=== PATIENT | male | born 1965 | race African-American/Black ===

== ENCOUNTER 2016-07-04 16:12 | Emergency (ER) | payer BC, OTHER ==
[2016-07-04] MEDS ORDERED: ACETAMINOPHEN TAB 500 MG TAB PO STA (16:52)
--- NOTE | 2016-07-04 16:55 | ED ---
General Adult HPI - General Chief complaint: Upper Respiratory Infection Stated complaint: SOB Time Seen by Provider: 07/04/16 16:43 Source: patient, RN notes reviewed Mode of arrival: ambulatory Limitations: no limitations - History of Present Illness Initial comments: This is a 51-year-old male who presents with fever that started on Tuesday. Patient also admits to a dry cough and mild congestion. Patient has had an intermittent headache. Patient denies any otalgia or sore throat. Patient admits to some mild shortness of breath. Patient denies any history of asthma or COPD. Patient states he's been taking Tylenol or Motrin for fever symptoms but has not had a measured fever. These are only subjective fevers. Patient states he smokes marijuana once in a while he denies tobacco use or any other drug use. Patient states he drinks alcohol socially. Patient denies any recent chest pain, abdominal pain, nausea/vomiting/diarrhea, back pain, numbness, tingling, hematuria, or visual changes, or any other complaints. - Related Data Home Medications Medication Instructions Recorded Confirmed Cholecalciferol [Vitamin D3] 1,000 unit PO DAILY 07/04/16 07/04/16 Naproxen Sodium [Aleve] 440 mg PO DAILY PRN 07/04/16 07/04/16 Vitamin C Chewable 1 tab PO DAILY 07/04/16 07/04/16 Previous Rx's Medication Instructions Recorded Albuterol Nebulized [Ventolin 2.5 mg INHALATION Q4H 7 Days 07/04/16 Nebulized] predniSONE 20 mg PO DAILY 5 Days 07/04/16 Allergies Allergy/AdvReac Type Severity Reaction Status Date / Time No Known Allergies Allergy Verified 07/04/16 18:07 Review of Systems ROS Statement: Those systems with pertinent positive or pertinent negative responses have been documented in the HPI. ROS Other: All systems not noted in ROS Statement are negative. Past Medical History Past Medical History: Hyperlipidemia History of Any Multi-Drug Resistant Organisms: None Reported Past Surgical History: No Surgical Hx Reported Past Psychological History: No Psychological Hx Reported Smoking Status: Never smoker Past Alcohol Use History: Occasional Past Drug Use History: None Reported General Exam - General Exam Comments Initial Comments: General: The patient is awake and alert, in no distress, and does not appear acutely ill. Eye: Pupils are equal, round and reactive to light, extra-ocular movements are intact. No nystagmus. There is normal conjunctiva bilaterally. No signs of icterus. Ears: TMs pink and pearly with intact cone of light bilaterally. Normal external ear canals Nose: Nasal turbinates pink and moist Mouth and throat: There are moist mucous membranes and no oral lesions. Neck: The neck is supple, there is no tenderness or JVD. Cardiovascular: There is a regular rate and rhythm. No murmur, rub or gallop is appreciated. Respiratory: Lungs are clear to auscultation, respirations are non-labored, breath sounds are equal. No wheezes, stridor, rales, or rhonchi. Musculoskeletal: Normal ROM, no tenderness. Strength 5/5. Sensation intact. Radial pulses equal bilaterally 2+. Neurological: A&O x 3. CN II-XII intact, There are no obvious motor or sensory deficits. Coordination appears grossly intact. Speech is normal. Skin: Skin is warm and dry and no rashes or lesions are noted. Psychiatric: Cooperative, appropriate mood & affect, normal judgment. Limitations: no limitations Course Vital Signs 07/04/16 07/04/16 07/04/16 16:36 17:23 18:37 Temperature 99.7 F H 101.2 F H Pulse Rate 119 H 90 95 Respiratory 24 18 Rate Blood Pressure 112/58 149/73 O2 Sat by Pulse 95 94 L Oximetry 07/04/16 07/04/16 18:43 19:30 Temperature 98.7 F Pulse Rate 95 109 H Respiratory 20 Rate Blood Pressure 134/65 O2 Sat by Pulse 98 Oximetry Medical Decision Making - Medical Decision Making This is a 41-year-old male with a fever and cough since Tuesday. On physical exam patient has a mild fever in the EC and was given Tylenol for this. Lungs are clear to auscultation bilaterally. Influenza was checked and came back positive for influenza A. A chest x-ray was done and reviewed showing: No acute cardiopulmonary process. Reported by Dr. Segal. Patient was feeling slightly dizzy in the EC. Patient is feeling better now and vital signs are stable. Patient was given a DuoNeb treatment in the EC as he states his chest feels tight when he breathes. Patient was feeling much better after DuoNeb treatment. Lungs are clear to auscultation after DuoNeb treatment. Patient was able to stand without feeling dizzy. Patient is agreeable to discharge at this time. I discussed the patient is out of the window for Tamiflu treatment. I discussed that patient be given a prescription for prednisone. I discussed that patient be sent home with a prescription for albuterol treatments and a nebulizer. Discussed symptomatic care. Patient was given a Motrin before discharge. Patient was 98% on room air with respiratory rate of 20 upon discharge. I discussed continuation of Tylenol and Motrin for fever. I discussed return parameters. Discussed that patient should follow up with PCP in one to 2 days or return to the EC for any worsening symptoms or for any further concerns. Patient was receptive to this plan and patient will be discharged home. I discussed this case with attending physician Dr. Augustine who agrees the plan as stated above. - Lab Data Lab Results 07/04/16 07/04/16 Range/Units 16:56 17:18 POC Glucose (mg/dL) 143 H (75-99) mg/dL POC Glu Agency Trainer ID Frances Hwang Influenza Type A RNA Detected H (Not Detectd) Influenza Type B (PCR) Not Detected (Not Detectd) Disposition Clinical Impression: Influenza A Disposition: HOME SELF-CARE Condition: Good Instructions: Influenza Vaccine (ED), Influenza in Children (ED) Additional Instructions: Please use nebulizer treatments as prescribed. Please use prednisone as prescribed. Please continue Tylenol and Motrin or fever. Please use over-the- counter decongestants for symptomatic relief. Please follow-up with her primary care physician tomorrow or return to the EC for any worsening symptoms or for any further concerns. Prescriptions: Albuterol Nebulized [Ventolin Nebulized] 2.5 mg INHALATION Q4H 7 Days predniSONE 20 mg PO DAILY 5 Days Referrals: Etienne Ivan DO [Primary Care Provider] - 1-2 days Time of Disposition: 19:14
[2016-07-04 17:33] LABS: Glucose,Whole Blood 143 mg/dL (75-99)
[2016-07-04] MEDS ORDERED: IPRATROPIUM-ALBUTEROL 3 ML NEB INHALATION STA (17:43)
[2016-07-04] MEDS ORDERED: IBUPROFEN 400 MG TAB PO STA (18:15)
--- NOTE | 2016-07-04 18:28 | XR ---
EXAMINATION TYPE: XR chest 2V DATE OF EXAM: 07/04/2016 6:10 PM COMPARISON: NONE HISTORY: Chest pain per order. Productive cough and shortness of breath patient. TECHNIQUE: Frontal and lateral views of the chest are obtained. FINDINGS: There is no focal air space opacity, pleural effusion, or pneumothorax seen. The cardiac silhouette size is within normal limits. The osseous structures are intact. IMPRESSION: No acute cardiopulmonary process.
[2016-07-04 19:31] VITALS: BP 134/65; PULSE 109; RESP 20; TEMP 98.7
== END 2016-07-04 19:30 | disposition home or self-care (01) ==
LOC: EC 16:12
DX: J10.1 Influenza due to other identified influenza virus with other respiratory manifestations (principal); Z79.899 Other long term (current) drug therapy
CPT/HCPCS: 36415; 71020; 87502; 94640; 99284

== ENCOUNTER 2016-08-24 07:55 | Emergency (ER) | payer OTHER ==
[2016-08-24 08:09] VITALS: BP 187/70; PULSE 77; RESP 18; TEMP 98.7
--- NOTE | 2016-08-24 08:38 | XR ---
EXAMINATION TYPE: XR chest 2V DATE OF EXAM: 08/24/2016 8:28 AM COMPARISON: 07/04/2016 HISTORY: 51-year-old male with cough TECHNIQUE: Frontal and lateral views FINDINGS: The cardiomediastinal silhouette, aorta, and pulmonary vasculature are within normal limits. Some str denise atelectasis at the left base. Otherwise, lungs and pleural spaces are clear. IMPRESSION: No acute cardiopulmonary process.
--- NOTE | 2016-08-24 08:48 | ED ---
ENT HPI - General Chief complaint: ENT Stated complaint: Congestion Time Seen by Provider: 08/24/16 08:08 Source: patient, RN notes reviewed Mode of arrival: ambulatory Limitations: no limitations - History of Present Illness Initial comments: 51-year-old male presents emergency Department chief complaint cough and congestion 2 days. Patient states that he has had some runny nose, postnasal drainage and cough. States his cough is mildly productive. The patient denies fever, chills, headache, dizziness, chest pain, shortness breath. Patient stopped taking any [id number] cough and cold medications. Patient denies any sick contacts. Patient states he has no known lung disease. Patient offers no other complaints. - Related Data Home Medications Medication Instructions Recorded Confirmed Cholecalciferol [Vitamin D3] 1,000 unit PO DAILY 07/04/16 08/24/16 Naproxen Sodium [Aleve] 440 mg PO DAILY PRN 07/04/16 08/24/16 Ascorbic Acid [Vitamin C] 500 mg PO DAILY 08/24/16 08/24/16 Allergies Allergy/AdvReac Type Severity Reaction Status Date / Time No Known Allergies Allergy Verified 08/24/16 08:39 Review of Systems ROS Statement: Those systems with pertinent positive or pertinent negative responses have been documented in the HPI. ROS Other: All systems not noted in ROS Statement are negative. Past Medical History Past Medical History: Hyperlipidemia History of Any Multi-Drug Resistant Organisms: None Reported Past Surgical History: No Surgical Hx Reported Past Psychological History: No Psychological Hx Reported Smoking Status: Never smoker Past Alcohol Use History: Occasional Past Drug Use History: None Reported General Exam Limitations: no limitations General appearance: alert, in no apparent distress Head exam: Present: atraumatic, normocephalic, normal inspection Eye exam: Present: normal appearance, PERRL, EOMI. Absent: scleral icterus, conjunctival injection, periorbital swelling ENT exam: Present: mucous membranes moist, TM's normal bilaterally. Absent: normal oropharynx ( nasal drainage no erythema) Neck exam: Present: normal inspection. Absent: tenderness, meningismus, lymphadenopathy Respiratory exam: Present: normal lung sounds bilaterally. Absent: respiratory distress, wheezes, rales, rhonchi, stridor Cardiovascular Exam: Present: regular rate, normal rhythm, normal heart sounds. Absent: systolic murmur, diastolic murmur, rubs, gallop, clicks Course Vital Signs 08/24/16 08:07 Temperature 98.7 F Pulse Rate 77 Respiratory 18 Rate Blood Pressure 187/70 O2 Sat by Pulse 96 Oximetry Medical Decision Making - Medical Decision Making 51-year-old male sent for cough and congestion symptoms. Patient's chest x-ray shows no acute abnormality. Patient's exam is essentially benign. Patient has a viral upper respiration infection. She will be discharged at this time return parameters were discussed. Disposition Clinical Impression: Viral URI with cough Disposition: HOME SELF-CARE Condition: Stable Instructions: Upper Respiratory Infection (ED) Additional Instructions: Please return to the Emergency Department if symptoms worsen or any other concerns. Time of Disposition: 08:47
== END 2016-08-24 08:56 | disposition home or self-care (01) ==
LOC: EC 07:55
DX: J06.9 Acute upper respiratory infection, unspecified (principal); Z79.899 Other long term (current) drug therapy
CPT/HCPCS: 71020; 99283

== ENCOUNTER 2017-10-18 07:26 | Emergency (ER) | payer OTHER ==
[2017-10-18 07:30] VITALS: BP 129/85; PULSE 67; RESP 18; TEMP 97.8
[2017-10-18] MEDS ORDERED: LIDOCAINE 1% INJ 10MG/ML (20 ML MDV) SQ STA (07:32)
[2017-10-18] MEDS ORDERED: DIPH,PERTUS(ACELL)TETVAC-LF 0.5 ML VIAL IM ONE (07:33)
--- NOTE | 2017-10-18 07:34 | ED ---
General Adult HPI <Raj Mike - Last Filed: 10/18/17 08:56> - General Source: patient, RN notes reviewed Mode of arrival: ambulatory Limitations: no limitations <Tushar Dueñas Last Filed: 10/18/17 09:03> - General Chief complaint: Skin/Abscess/Foreign Body Stated complaint: fish hook rt thumb Time Seen by Provider: 10/18/17 07:31 - History of Present Illness Initial comments: Patient 52-year-old male presented to the emergency room today with a chief complaint of fishhook to the right thumb. Patient states that he was fishing this morning when he accidentally stuck himself. Patient states unsure of his tetanus status. He denies any other complaints or symptoms. Patient denies any recent fever, chills, shortness of breath, chest pain, back pain, abdominal pain , nausea or vomiting, numbness or tingling, headaches or visual changes, or any other complaints. (Tushar Dueñas) - Related Data Home Medications Medication Instructions Recorded Confirmed Cholecalciferol [Vitamin D3] 1,000 unit PO DAILY 07/04/16 10/18/17 Naproxen Sodium [Aleve] 440 mg PO DAILY PRN 07/04/16 10/18/17 Ascorbic Acid [Vitamin C] 500 mg PO DAILY 08/24/16 10/18/17 Allergies Allergy/AdvReac Type Severity Reaction Status Date / Time No Known Allergies Allergy Verified 10/18/17 08:11 Review of Systems ROS Other: All systems not noted in ROS Statement are negative. <Raj Mike - Last Filed: 10/18/17 08:56> ROS Other: All systems not noted in ROS Statement are negative. <Tushar Dueñas - Last Filed: 10/18/17 09:03> ROS Statement: Those systems with pertinent positive or pertinent negative responses have been documented in the HPI. Past Medical History Past Medical History: No Reported History History of Any Multi-Drug Resistant Organisms: None Reported Past Surgical History: No Surgical Hx Reported Past Psychological History: No Psychological Hx Reported Smoking Status: Never smoker Past Alcohol Use History: Occasional Past Drug Use History: None Reported <Tushar Dueñas Last Filed: 10/18/17 09:03> General Exam <Raj Mike Last Filed: 10/18/17 08:56> Limitations: no limitations <Tushar Dueñas - Last Filed: 10/18/17 09:03> - General Exam Comments Initial Comments: General: The patient is awake and alert, in no distress, and does not appear acutely ill. Eye: Pupils are equal, round and reactive to light, extra-ocular movements are intact. No nystagmus. There is normal conjunctiva bilaterally. No signs of icterus. Ears, nose, mouth and throat: There are moist mucous membranes and no oral lesions. Neck: The neck is supple, there is no tenderness or JVD. Musculoskeletal: Normal ROM, no tenderness. Strength 5/5. Sensation intact. Pulses equal bilaterally 2+. Neurological: A&O x 3. CN II-XII intact, There are no obvious motor or sensory deficits. Coordination appears grossly intact. Speech is normal. Skin: Natoma located volar aspect of the right distal thumb. Psychiatric: Cooperative, appropriate mood & affect, normal judgment. (Tushar Dueñas) Vital Signs 10/18/17 07:27 Temperature 97.8 F Pulse Rate 67 Respiratory 18 Rate Blood Pressure 129/85 O2 Sat by Pulse 98 Oximetry Procedures <Raj Mike - Last Filed: 10/18/17 08:56> <Tushar Dueñas - Last Filed: 10/18/17 09:03> - Procedures Initial comment: The patient requested a physician to remove the hook. I did prep the patient's right thumb with Betadine and used 1% Xylocaine plain for local anesthetic. I did cover the 2 exposed barbs of the 3 barbed the fishhook and I was able to remove the hook intact using needle nose pliers. Patient tolerated it well. A dressing will be applied. The fishhook was intact no evidence of any retained foreign body. (Raj Mike) Disposition <Raj Mike - Last Filed: 10/18/17 08:56> Is patient prescribed a controlled substance at d/c from ED?: No Time of Disposition: 09:03 <Tushar Dueñas - Last Filed: 10/18/17 09:03> Clinical Impression: Natoma injury to finger Disposition: HOME SELF-CARE Condition: Good Instructions: Puncture Wound (ED) Additional Instructions: Please watch for signs of infection which may include increased pain, redness, fever or chills. Please return to emergency room for any signs of infection or any other concern. Referrals: SouEtienne washington DO [Primary Care Provider] - 1-2 days
== END 2017-10-18 09:08 | disposition home or self-care (01) ==
LOC: EC 07:26
DX: S60.351A Superficial foreign body of right thumb, initial encounter (principal); Z23 Encounter for immunization; Z79.899 Other long term (current) drug therapy; W22.8XXA Striking against or struck by other objects, initial encounter
CPT/HCPCS: 90715; 99282; 10120; 90471; J2001

== ENCOUNTER 2018-01-25 17:44 | Observation (INO) | payer OTHER ==
[2018-01-25] MEDS ORDERED: METOCLOPRAMIDE 5 MG/ML 2 ML VIAL IVP STA (17:59)
--- NOTE | 2018-01-25 18:03 | ED ---
General Adult HPI - General Chief complaint: Altered Mental Status Stated complaint: Unresponsive Time Seen by Provider: 01/25/18 17:47 Source: patient, EMS, RN notes reviewed Mode of arrival: EMS Limitations: altered mental status - History of Present Illness Initial comments: Patient is a pleasant 52-year-old male presenting to the emergency department following an episode of decreased responsiveness. Patient states he does feel fatigued. Patient is alert however answers in one word sentences. Patient is unclear why he feels this way. Patient states he does remember earlier this morning however does not remember what happened that brought him here. 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 Patient was alert but with decreased responsiveness. Patient originally denies any discomfort. Nursing added that patient distally had admitted to some chest discomfort and now is agreeable to that when he had previously specifically denied it. Patient also admits that they may have been a tiny bit short of breath. Patient was reported as being diaphoretic earlier. Patient denies any histories of seizures. - Related Data Home Medications Medication Instructions Recorded Confirmed Cholecalciferol [Vitamin D3] 1,000 unit PO DAILY 07/04/16 01/25/18 Naproxen Sodium [Aleve] 440 mg PO DAILY PRN 07/04/16 01/25/18 Ascorbic Acid [Vitamin C] 500 mg PO DAILY 08/24/16 01/25/18 Allergies Allergy/AdvReac Type Severity Reaction Status Date / Time strawberry Allergy Anaphylaxis Verified 01/25/18 18:23 Review of Systems ROS Statement: Those systems with pertinent positive or pertinent negative responses have been documented in the HPI. ROS Other: All systems not noted in ROS Statement are negative. Constitutional: Denies: fever Eyes: Denies: eye pain ENT: Denies: ear pain Respiratory: Reports: as per HPI. Denies: cough Cardiovascular: Reports: as per HPI Endocrine: Reports: fatigue Gastrointestinal: Reports: nausea. Denies: abdominal pain, vomiting Genitourinary: Denies: dysuria Musculoskeletal: Denies: back pain Skin: Denies: rash Past Medical History Past Medical History: No Reported History History of Any Multi-Drug Resistant Organisms: None Reported Past Surgical History: No Surgical Hx Reported Past Psychological History: No Psychological Hx Reported Smoking Status: Never smoker Past Alcohol Use History: Occasional Past Drug Use History: None Reported General Exam Limitations: altered mental status General appearance: alert, in no apparent distress, other (Patient is alert but slow to react. Patient answers in one word sentences. Patient follow simple commands.) Head exam: Present: atraumatic, normocephalic Eye exam: Present: normal appearance, PERRL ENT exam: Present: normal oropharynx Neck exam: Present: normal inspection. Absent: tenderness Respiratory exam: Present: normal lung sounds bilaterally Cardiovascular Exam: Present: regular rate, normal rhythm Expanded Peripheral pulses: 2+: Radial (R), Radial (L), Posterior Tibialis (R), Posterior Tibialis (L), Dorsalis Pedis (R), Dorsalis Pedis (L) GI/Abdominal exam: Present: soft. Absent: tenderness Extremities exam: Present: normal inspection. Absent: pedal edema, calf tenderness Neurological exam: Present: alert, oriented X3, CN II-XII intact. Absent: motor sensory deficit Psychiatric exam: Present: flat affect Skin exam: Present: normal color Course Vital Signs 01/25/18 01/25/18 17:52 19:12 Temperature 98.7 F 97.3 F L Pulse Rate 82 65 Respiratory 18 18 Rate Blood Pressure 120/73 121/63 O2 Sat by Pulse 98 100 Oximetry EKG Findings - EKG Comments: EKG Findings:: Normal sinus rhythm 78. OR 186. QRS 148. QT 396. QTc 451. Normal axis. Right bundle branch block. No acute ST change. Medical Decision Making - Medical Decision Making Patient reevaluated and is somewhat improved. Patient remained slightly drowsy however is more alert than he arrived. Family members are present. Family states patient did have an episode of near syncope associated with mild confusion that just lasted for seconds. Patient never lost consciousness completely. When questioned family states patient has been under increased stress recently. Case was discussed with Dr. collazo, who will admit for Dr. Ivan. Consult placed for neurology as well as psychiatry. - Lab Data Result diagrams: 01/25/18 18:10 01/25/18 18:10 Lab Results 01/25/18 01/25/18 01/25/18 Range/Units 18:10 18:10 18:10 WBC 5.9 (3.8-10.6) k/uL RBC 5.05 (4.30-5.90) m/uL Hgb 14.2 (13.0-17.5) gm/dL Hct 43.3 (39.0-53.0) % MCV 85.7 (80.0-100.0) fL MCH 28.1 (25.0-35.0) pg MCHC 32.8 (31.0-37.0) g/dL RDW 13.7 (11.5-15.5) % Plt Count 113 L (150-450) k/uL Neutrophils % 69 % Lymphocytes % 24 % Monocytes % 4 % Eosinophils % 3 % Basophils % 1 % Neutrophils # 4.0 (1.3-7.7) k/uL Lymphocytes # 1.4 (1.0-4.8) k/uL Monocytes # 0.2 (0-1.0) k/uL Eosinophils # 0.2 (0-0.7) k/uL Basophils # 0.0 (0-0.2) k/uL PT (9.0-12.0) sec INR (<1.2) APTT (22.0-30.0) sec D-Dimer (<0.60) mg/L FEU Sodium 141 (137-145) mmol/L Potassium 3.6 (3.5-5.1) mmol/L Chloride 106 (98-107) mmol/L Carbon Dioxide 25 (22-30) mmol/L Anion Gap 10 mmol/L BUN 17 (9-20) mg/dL Creatinine 1.33 H (0.66-1.25) mg/dL Est GFR (CKD-EPI)AfAm 72 (>60 ml/min/1.73 sqM) Est GFR (CKD-EPI)NonAf 62 (>60 ml/min/1.73 sqM) Glucose 124 H (74-99) mg/dL Calcium 9.0 (8.4-10.2) mg/dL Total Bilirubin 0.4 (0.2-1.3) mg/dL AST 53 (17-59) U/L ALT 45 (21-72) U/L Alkaline Phosphatase 44 (38-126) U/L Total Creatine Kinase 924 H (55-170) U/L CK-MB (CK-2) 6.5 H (0.0-2.4) ng/mL CK-MB (CK-2) Rel Index 0.7 Troponin I <0.012 (0.000-0.034) ng/mL Total Protein 7.3 (6.3-8.2) g/dL Albumin 4.2 (3.5-5.0) g/dL Urine Color Urine Appearance (Clear) Urine pH (5.0-8.0) Ur Specific [place] (1.001-1.035) Urine Protein (Negative) Urine Glucose (UA) (Negative) Urine Ketones (Negative) Urine Blood (Negative) Urine Nitrite (Negative) Urine Bilirubin (Negative) Urine Urobilinogen (<2.0) mg/dL Ur Leukocyte Esterase (Negative) Urine Opiates Screen (NotDetected) Ur Oxycodone Screen (NotDetected) Urine Methadone Screen (NotDetected) Ur Propoxyphene Screen (NotDetected) Ur Barbiturates Screen (NotDetected) U Tricyclic Antidepress (NotDetected) Ur Phencyclidine Scrn (NotDetected) Ur Amphetamines Screen (NotDetected) U Methamphetamines Scrn (NotDetected) U Benzodiazepines Scrn (NotDetected) Urine Cocaine Screen (NotDetected) U Marijuana (THC) Screen (NotDetected) Serum Alcohol <10 mg/dL 01/25/18 01/25/18 Range/Units 18:10 18:10 WBC (3.8-10.6) k/uL RBC (4.30-5.90) m/uL Hgb (13.0-17.5) gm/dL Hct (39.0-53.0) % MCV (80.0-100.0) fL MCH (25.0-35.0) pg MCHC (31.0-37.0) g/dL RDW (11.5-15.5) % Plt Count (150-450) k/uL Neutrophils % % Lymphocytes % % Monocytes % % Eosinophils % % Basophils % % Neutrophils # (1.3-7.7) k/uL Lymphocytes # (1.0-4.8) k/uL Monocytes # (0-1.0) k/uL Eosinophils # (0-0.7) k/uL Basophils # (0-0.2) k/uL PT 10.3 (9.0-12.0) sec INR 1.0 (<1.2) APTT 18.6 L (22.0-30.0) sec D-Dimer 0.27 (<0.60) mg/L FEU Sodium (137-145) mmol/L Potassium (3.5-5.1) mmol/L Chloride (98-107) mmol/L Carbon Dioxide (22-30) mmol/L Anion Gap mmol/L BUN (9-20) mg/dL Creatinine (0.66-1.25) mg/dL Est GFR (CKD-EPI)AfAm (>60 ml/min/1.73 sqM) Est GFR (CKD-EPI)NonAf (>60 ml/min/1.73 sqM) Glucose (74-99) mg/dL Calcium (8.4-10.2) mg/dL Total Bilirubin (0.2-1.3) mg/dL AST (17-59) U/L ALT (21-72) U/L Alkaline Phosphatase (38-126) U/L Total Creatine Kinase (55-170) U/L CK-MB (CK-2) (0.0-2.4) ng/mL CK-MB (CK-2) Rel Index Troponin I (0.000-0.034) ng/mL Total Protein (6.3-8.2) g/dL Albumin (3.5-5.0) g/dL Urine Color Yellow Urine Appearance Clear (Clear) Urine pH 7.0 (5.0-8.0) Ur Specific [place] 1.022 (1.001-1.035) Urine Protein Trace H (Negative) Urine Glucose (UA) Negative (Negative) Urine Ketones Negative (Negative) Urine Blood Negative (Negative) Urine Nitrite Negative (Negative) Urine Bilirubin Negative (Negative) Urine Urobilinogen <2.0 (<2.0) mg/dL Ur Leukocyte Esterase Negative (Negative) Urine Opiates Screen Not Detected (NotDetected) Ur Oxycodone Screen Not Detected (NotDetected) Urine Methadone Screen Not Detected (NotDetected) Ur Propoxyphene Screen Not Detected (NotDetected) Ur Barbiturates Screen Not Detected (NotDetected) U Tricyclic Antidepress Not Detected (NotDetected) Ur Phencyclidine Scrn Not Detected (NotDetected) Ur Amphetamines Screen Not Detected (NotDetected) U Methamphetamines Scrn Not Detected (NotDetected) U Benzodiazepines Scrn Not Detected (NotDetected) Urine Cocaine Screen Not Detected (NotDetected) U Marijuana (THC) Screen Detected H (NotDetected) Serum Alcohol mg/dL - Radiology Data Radiology results: report reviewed (Computed tomography scan of the brain shows no acute process.), image reviewed (Chest x-ray shows no acute process) Disposition Clinical Impression: Altered mental status Disposition: ADMITTED IP TO THIS HOSP Is patient prescribed a controlled substance at d/c from ED?: No Referrals: Etienne Ivan DO [Primary Care Provider] - 1-2 days Decision Time: 20:18
[2018-01-25 18:21] LABS: Appearance,Urine Clear (Clear); Basophils % (A) 1 %; Bilirubin,Urine Negative (Negative); Blood,Urine Negative (Negative); Color,Urine Yellow; Eosinophils # (A) 0.2 k/uL (0-0.7); Eosinophils % (A) 3 %; Glucose,Urine (UA) Negative (Negative); HCT 43.3 % (39.0-53.0); HGB 14.2 gm/dL (13.0-17.5); Ketones,Urine Negative (Negative); Leukocyte Esterase,Urine Negative (Negative); Lymphocytes # (A) 1.4 k/uL (1.0-4.8); Lymphocytes % (A) 24 %; MCH 28.1 pg (25.0-35.0); MCHC 32.8 g/dL (31.0-37.0); MCV 85.7 fL (80.0-100.0); Mean Platelet Volume 8.3; Monocytes # (A) 0.2 k/uL (0-1.0); Monocytes % (A) 4 %; Neutrophils % (A) 69 %; Nitrite,Urine Negative (Negative); Platelet Count 113 k/uL (150-450); Protein,Urine Trace (Negative); RBC 5.05 m/uL (4.30-5.90); RDW 13.7 % (11.5-15.5); Specific Gravity,Urine 1.022 (1.001-1.035); Urobilinogen,Urine <2.0 mg/dL (<2.0); WBC 5.9 k/uL (3.8-10.6)
[2018-01-25 18:30] LABS: ALT 45 U/L (21-72); AST 53 U/L (17-59); Albumin 4.2 g/dL (3.5-5.0); Alcohol <10 mg/dL; Alkaline Phosphatase 44 U/L (38-126); Anion Gap 10 mmol/L; Blood Urea Nitrogen 17 mg/dL (9-20); Carbon Dioxide 25 mmol/L (22-30); Chloride 106 mmol/L (98-107); Glucose 124 mg/dL (74-99); Potassium 3.6 mmol/L (3.5-5.1); Sodium 141 mmol/L (137-145); Total Bilirubin 0.4 mg/dL (0.2-1.3); Total Protein 7.3 g/dL (6.3-8.2)
[2018-01-25 18:32] LABS: Amphetamine Screen,Urine Not Detected (NotDetected); Barbiturate Screen,Urine Not Detected (NotDetected); Benzodiazepines Screen,Urine Not Detected (NotDetected); Cocaine Screen,Urine Not Detected (NotDetected); Methadone Screen, Urine Not Detected (NotDetected); Opiate Screen,Urine Not Detected (NotDetected); Oxycodone Screen, Urine Not Detected (NotDetected); Phencyclidine Screen,Urine Not Detected (NotDetected); Tricyclic Antidepressant,Urine Not Detected (NotDetected); Urn Cannabinoid Scrn Detected (NotDetected)
[2018-01-25 18:35] LABS: Creatine Kinase 924 U/L (55-170)
--- NOTE | 2018-01-25 18:42 | CT ---
EXAMINATION TYPE: CT brain wo con DATE OF EXAM: 01/25/2018 COMPARISON: None HISTORY: Altered mental status. CT DLP: 1183 mGycm Automated exposure control for dose reduction was used. FINDINGS: Ventricles have normal size. There is no mass effect nor midline shift. There is no sign of intracran ial hemorrhage. The calvarium appears intact. IMPRESSION: NEGATIVE CT SCAN OF THE BRAIN.
[2018-01-25 18:45] LABS: D-Dimer 0.27 mg/L FEU (<0.60); Prothrombin Time 10.3 sec (9.0-12.0)
[2018-01-25 18:48] LABS: Creatine Kinase MB 6.5 ng/mL (0.0-2.4); Troponin I <0.012 ng/mL (0.000-0.034)
[2018-01-25 18:50] LABS: Partial Thromboplastin Time 18.6 sec (22.0-30.0)
--- NOTE | 2018-01-25 19:13 | XR ---
EXAMINATION TYPE: XR chest 2V DATE OF EXAM: 01/25/2018 COMPARISON: 08/24/2016 HISTORY: Altered mental status. Chest pain TECHNIQUE: Frontal and lateral views of the chest are obtained. FINDINGS: There is no heart failure nor confluent pneumonic infiltrate. Costophrenic angles are carroll r. There are chest leads. Bony thorax is intact. IMPRESSION: Normal chest. No change.
[2018-01-25] MEDS ORDERED: ONDANSETRON 4 MG/2 ML VIAL IVP PRN (20:22)
[2018-01-25] MEDS ORDERED: NALOXONE 0.4 MG/ML 1 ML VIAL IV PRN (20:22)
[2018-01-25] MEDS: PANTOPRAZOLE 40 MG/10 ML VIAL IV SCH (21:15)
[2018-01-25] MEDS: SODIUM CHLORIDE 0.9% 1,000 ML IV SCH (21:15)
[2018-01-26 00:47] LABS: Creatine Kinase 743 U/L (55-170)
[2018-01-26 00:59] LABS: Creatine Kinase MB 5.8 ng/mL (0.0-2.4); Troponin I <0.012 ng/mL (0.000-0.034)
[2018-01-26] MEDS: SODIUM CHLORIDE 0.9% 1,000 ML IV SCH ×2 (06:38→15:51)
[2018-01-26 07:16] LABS: Basophils % (A) 0 %; Eosinophils # (A) 0.2 k/uL (0-0.7); Eosinophils % (A) 3 %; HCT 41.5 % (39.0-53.0); HGB 13.6 gm/dL (13.0-17.5); Lymphocytes # (A) 1.8 k/uL (1.0-4.8); Lymphocytes % (A) 27 %; MCH 28.3 pg (25.0-35.0); MCHC 32.8 g/dL (31.0-37.0); MCV 86.4 fL (80.0-100.0); Mean Platelet Volume 7.9; Monocytes # (A) 0.3 k/uL (0-1.0); Monocytes % (A) 4 %; Neutrophils # (A) 4.1 k/uL (1.3-7.7); Neutrophils % (A) 63 %; Platelet Count 127 k/uL (150-450); RBC 4.81 m/uL (4.30-5.90); RDW 13.9 % (11.5-15.5); WBC 6.4 k/uL (3.8-10.6)
[2018-01-26 07:26] LABS: ALT 38 U/L (21-72); AST 38 U/L (17-59); Albumin 3.5 g/dL (3.5-5.0); Alkaline Phosphatase 36 U/L (38-126); Anion Gap 6 mmol/L; Blood Urea Nitrogen 12 mg/dL (9-20); Calcium 8.6 mg/dL (8.4-10.2); Carbon Dioxide 27 mmol/L (22-30); Chloride 110 mmol/L (98-107); Glucose 91 mg/dL (74-99); Sodium 143 mmol/L (137-145); Total Bilirubin 0.5 mg/dL (0.2-1.3); Total Protein 6.3 g/dL (6.3-8.2)
[2018-01-26 07:36] LABS: Creatine Kinase 615 U/L (55-170)
[2018-01-26 07:49] LABS: Creatine Kinase MB 4.4 ng/mL (0.0-2.4); Troponin I <0.012 ng/mL (0.000-0.034)
[2018-01-26] MEDS: PANTOPRAZOLE 40 MG/10 ML VIAL IV SCH (10:06)
[2018-01-26] MEDS: ENOXAPARIN 40 MG/0.4 ML SYRINGE SQ SCH (18:55)
--- NOTE | 2018-01-26 20:19 | P.CNNES ---
History of Present Illness Consult date: 01/26/18 History of Present Illness: The patient is a 52-year-old right-handed black male who states that yesterday afternoon around 5 PM he was at work at the [employer] and he felt hot and lightheaded and had diffuse sweating and tachycardia. He also experienced left leg tingling and he felt like he was in and out of consciousness. He states he was in the parking lot and he called his jogtwnw-mr-cdf who came to meet him. His ncozcxp-kq-nix called EMS. His msdvgzw-hj-dhw reported seeing his the patient' s eyes rolled up. The patient had also experienced some chest pain and mild shortness of breath. He felt incoherent and confused for quite some time. Family members report that all day yesterday he was very confused. His his family noticed that his arm was jerking in the emergency room left arm more than right. Also his legs were tremoring. She has no previous history of such symptoms. There is no history of's head injury or seizures. Patient feels pretty much back to baseline now. Review of Systems Constitutional: Denies chills, Denies fever Eyes: denies blurred vision, denies pain Ears, nose, mouth and throat: Denies headache, Denies sore throat Cardiovascular: Denies chest pain, Denies shortness of breath Respiratory: Denies cough Musculoskeletal: Denies myalgias Neurological: Reports as per HPI Psychiatric: Denies anxiety, Denies depression Past Medical History Past Medical History: Hyperlipidemia Additional Past Medical History / Comment(s): right foot plantar fascitis History of Any Multi-Drug Resistant Organisms: None Reported Past Surgical History: No Surgical Hx Reported Past Anesthesia/Blood Transfusion Reactions: No Reported Reaction Smoking Status: Never smoker - Past Family History Father Family Medical History: Coronary Artery Disease (CAD) Mother Family Medical History: Cancer Sister(s) Additional Family Medical History / Comment(s): chiari formation Brother(s) Family Medical History: Asthma, Hypertension, Renal Disease Son(s) Family Medical History: No Reported History Daughter(s) Family Medical History: Cancer Additional Family Medical History / Comment(s): brain cancer Medications and Allergies Home Medications Medication Instructions Recorded Confirmed Type Cholecalciferol [Vitamin D3] 1,000 unit PO DAILY 07/04/16 01/25/18 History Naproxen Sodium [Aleve] 440 mg PO DAILY PRN 07/04/16 01/25/18 History Ascorbic Acid [Vitamin C] 500 mg PO DAILY 08/24/16 01/25/18 History Allergies Allergy/AdvReac Type Severity Reaction Status Date / Time strawberry Allergy Anaphylaxis Verified 01/25/18 22:22 Physical Examination - Vital Signs Vital Signs: Vital Signs Temp Pulse Pulse Pulse Resp BP BP 01/26/18 20:00 98.0 F 71 16 01/26/18 16:30 98.2 F 71 18 01/26/18 11:30 98.0 F 75 18 01/26/18 08:00 97.5 F L 71 18 01/26/18 04:00 98.2 F 78 14 114/73 01/26/18 03:50 16 01/25/18 23:45 98.0 F 71 16 158/74 01/25/18 22:44 16 01/25/18 21:40 98.2 F 75 16 161/71 01/25/18 21:06 98.8 F 75 16 143/66 BP Pulse Ox 01/26/18 20:00 159/64 98 01/26/18 16:30 156/79 96 01/26/18 11:30 143/78 96 01/26/18 08:00 114/75 100 01/26/18 04:00 100 01/26/18 03:50 01/25/18 23:45 97 01/25/18 22:44 01/25/18 21:40 100 01/25/18 21:06 100 Intake and Output 01/26/18 01/26/18 01/26/18 06:59 14:59 22:59 Intake Total 2100 480 360 Balance 2100 480 360 Intake: IV 900 Sodium Chloride 0.9% 1, 900 000 ml @ 100 mls/hr IV . Q10H [facility] Rx#:[id number] Oral 1200 480 360 Other: # Voids 4 1 1 - Constitutional General appearance: average body habitus - EENT EENT: PERRL - Respiratory Respiratory: lungs clear - Cardiovascular Cardiovascular: regular rate, normal S1, normal S2 - Integumentary Integumentary: normal - Neurologic Cranial nerve examination: PERRL, EOMI, VFF, V1/V2/V3 grossly intact, face symmetric, tongue midline Speech examination: intact Sensorimotor examination: intact Detailed motor examination: grossly full strength in all extremities Reflexes: 2+: knee, tricep - Psychiatric Psychiatric: mood/affect appropriate Results - Laboratory Findings CBC and BMP: 01/26/18 06:32 01/26/18 06:32 Abnormal Lab Findings: Abnormal Labs 01/25/18 01/25/18 01/25/18 18:10 18:10 18:10 Plt Count 113 L APTT Chloride Creatinine 1.33 H Glucose 124 H Alkaline Phosphatase Total Creatine Kinase 924 H CK-MB (CK-2) 6.5 H Urine Protein U Marijuana (THC) Screen 01/25/18 01/25/18 01/26/18 18:10 18:10 00:17 Plt Count APTT 18.6 L Chloride Creatinine Glucose Alkaline Phosphatase Total Creatine Kinase 743 H CK-MB (CK-2) 5.8 H Urine Protein Trace H U Marijuana (THC) Screen Detected H 01/26/18 01/26/18 01/26/18 06:32 06:32 06:32 Plt Count 127 L APTT Chloride 110 H Creatinine Glucose Alkaline Phosphatase 36 L Total Creatine Kinase 615 H CK-MB (CK-2) 4.4 H Urine Protein U Marijuana (THC) Screen Assessment and Plan (1) Pre-syncope Current Visit: Yes Status: Acute SNOMED Code(s): 950480234 (2) Tachycardia Current Visit: Yes Status: Acute SNOMED Code(s): 2151432 (3) Altered mental status Current Visit: Yes Status: Acute SNOMED Code(s): 238135527 Plan: Patient is a 52-year-old man who presented to the emergency room with episode of lightheadedness presyncope confusion and disorientation diffuse sweating tachycardia and left leg tingling. Patient is back to his baseline currently. The patient may have had a presyncopal versus syncopal event. He was advised that if he did pass out he should not be operating a motorized vehicle as per [place] law until spell free for 6 months. Recommend cardiology consultation. Recommend carotid ultrasound, EEG and echocardiogram
--- NOTE | 2018-01-26 23:50 | HP ---
HISTORY AND PHYSICAL DATE OF ADMISSION: 01/25/2018 DATE OF SERVICE: 01/26/2018 PRESENTING COMPLAINT: Loss of consciousness. HISTORY OF PRESENTING COMPLAINT: This is a 52-year-old patient who follows with Dr. Ivan. Patient's chronic stable medical conditions include hyperlipidemia -- he does not take any medications -- right foot plantar fasciitis. 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 Patient took his break around 5:00, went to sit outside. He felt hot and sweaty and just felt faint and started to black out. He felt his heart racing, really broke out in a sweat. He called his brother on the phone. When the zpbqvng-gv-kav got there, who also works at the same facility, he found him passed out. He called 911. The patient did have a pulse. Patient really could not talk when the EMS arrived. Eyes were rolled back. There were also jerky movements reported of the limbs several times, even after he came to the ER. Patient was fading in and out of consciousness. Patient denies taking any recreational drugs. Denies any prior head injury. No other seizure activity in the past. No rzrl-[id number] medications or supplements. Patient's urine drug screen did show some marijuana. Denies any alcohol. Today also during the interview this afternoon the patient was still somewhat distant, lethargic, not fully awake. Patient's sister, patient's son and patient's nephew are present in the room. REVIEW OF SYSTEMS: CONSTITUTIONAL: Tired. HEENT: None. RESPIRATORY: None. CARDIOVASCULAR: None. GASTROINTESTINAL: None. GENITOURINARY: None. MUSCULOSKELETAL: Pain in the foot. DERMATOLOGICAL: None. HEMATOLOGICAL: None. LYMPHATICS: None. PSYCHIATRY: None. NEUROLOGICAL: No tongue-biting. No incontinence. PAST MEDICAL HISTORY: 1. Hyperlipidemia. 2. Right foot plantar fasciitis. PAST SURGICAL HISTORY: None. SOCIAL HISTORY: Patient lives by himself. 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 Denies alcohol and smoking. Urine drug screen was positive for marijuana. FAMILY HISTORY: Positive for coronary artery disease. HOME MEDICATIONS: 1. Naproxen 440 mg daily p.r.n. 2. Vitamin D3 1000 mg p.o. daily. 3. Vitamin C 500 mg p.o. daily. ALLERGIES: STRAWBERRIES. PHYSICAL EXAMINATION: Temperature 98.7, pulse 82, respiration 18, blood pressure 120/73, pulse ox 98% on room air. BMI 32.4. GENERAL APPEARANCE: Lying in bed, lethargic. Just drifts off a bit during talking. EYES: Pupils equal. Conjunctivae normal. HEENT: External appearance of nose and ears normal. Oral cavity normal. NECK: JVD not raised. Mass not palpable. RESPIRATORY: Effort normal. Lungs are clear. CARDIOVASCULAR: First and second sounds normal. No edema. ABDOMEN: Soft, non-tender. Liver and spleen not palpable. LYMPHATIC: No lymph node palpable in neck or axillae. PSYCHIATRY: Slightly lethargic but able to answer questions. NEUROLOGICAL: Reflexes are equal, symmetrical. INVESTIGATIONS: White count 5.9, hemoglobin 14.2, platelets 113, potassium 3.6, creatinine 1.33, repeat 1.09. CPK was 924. Urine drug screen positive for marijuana. CT scan of the brain negative. Chest x-ray film, personally reviewed by me, shows normal lung rodriguez. EKG shows right bundle branch block. ASSESSMENT: 1. This is a young patient who is in pretty good health. He was sitting out. It was not very hot outside. He passed out. Eyes wide open. Noted to have some jerking movements in the ER by his sister and patient was lethargic; on and off still so today after close to 20 hours. Patient well may have had a seizure episode with a postictal period. The patient denies any recreational drug use, though marijuana was found, but that should not explain his presentation. There was no head injury, no alcohol involved. It does not sound like a cardiac presentation. 2. Obesity, body mass index 32.4. 3. Mild thrombocytopenia, cause unknown. 4. Mild rhabdomyolysis secondary to fall. PLAN: Neuro checks are in place. Neurology was consulted. The patient will need an EEG. Care was discussed at length with the patient and family at the bedside. Questions were answered. MMODL / IJN: [id number] /
[2018-01-27] MEDS: SODIUM CHLORIDE 0.9% 1,000 ML IV SCH (05:48)
[2018-01-27] MEDS ORDERED: PANTOPRAZOLE 40 MG TABLET PO SCH (07:30)
[2018-01-27 08:07] VITALS: RESP 18; TEMP 97.9
[2018-01-27] MEDS: ENOXAPARIN 40 MG/0.4 ML SYRINGE SQ SCH (08:56)
--- NOTE | 2018-01-27 09:21 | US ---
EXAMINATION TYPE: US carotid duplex BILAT DATE OF EXAM: 01/27/2018 COMPARISON: NONE CLINICAL HISTORY: Presyncope, tachycardia. EXAM MEASUREMENTS: RIGHT: Peak Systolic Velocity (PSV) cm/sec ----- Right CCA: 93.0 ----- Right ICA: 77.8 ----- Right ECA: 65.6 ICA/CCA ratio: 0.8 RIGHT: End Diastole cm/sec ----- Right CCA: 24.8 ----- Right ICA: 34.8 ----- Right ECA: 7.3 LEFT: Peak Systolic Velocity (PSV) cm/sec ----- Left CCA: 98.0 ----- Left ICA: 95.5 ----- Left ECA: 91.7 ICA/CCA ratio: 1.0 LEFT: End Diastole cm/sec ----- Left CCA: 23.5 ----- Left ICA: 29.8 ----- Left ECA: 8.3 VERTEBRALS (direction of flow): Right Vertebral: Antegrade Left Vertebral: Antegrade Rhythm: Normal No significant stenosis seen. No elevated velocities. Mild plaque noted, some intimal thickening note d proximal left CCA. IMPRESSION: 1. Mild atherosclerotic plaque with no significant hemodynamic stenosis. Criteria for Assigning % of Stenosis / Diameter reduction (Estimation based on the indirect measurements of the internal carotid artery velocities (ICA PSV). 1. Normal (no stenosis)=ICA PSV < 125 cm/s: ratio < 2.0: ICA EDV<40 cm/s. 2. Less than 50% stenosis=ICA PSV < 125 cm/s: ratio < 2.0: ICA EDV<40 cm/s. 3. 50 to 69% stenosis=ICA PSV of 125 to 230 cm/s: ration 2.0 ? 4.0: ICA EDV 40-100 cm/s. 4. Greater than 70% stenosis to near occlusion= ICA PSV > 230 cm/s: ratio > 4.0: ICA EDV > 100 cm/s. 5. Near occlusion= ICA PSV velocities may be low or undetectable: variable ratio and ICA EDV. 6. Total occlusion=unable to detect flow.
--- NOTE | 2018-01-27 12:14 | ECHOF ---
Referral Reason:Presyncope, tachycardia MEASUREMENTS -------- HEIGHT: 182.9 cm WEIGHT: 108.4 kg BP: 143/2 RVIDd: 3.6 cm (< 3.3) IVSd: 1.1 cm (0.6 - 1.1) LVIDd: 4.6 cm (3.9 - 5.3) LVPWd: 1.1 cm (0.6 - 1.1) IVSs: 1.6 cm LVIDs: 3.2 cm LVPWs: 1.6 cm LA Diam: 3.5 cm (2.7 - 3.8) LAESV Index (A-L): 24.73 ml/m Ao Diam: 3.0 cm (2.0 - 3.7) AV Cusp: 2.3 cm (1.5 - 2.6) MV EXCURSION: 17.896 mm (> 18.000) MV EF SLOPE: 106 mm/s (70 - 150) EPSS: 0.4 cm MV E Satya: 1.04 m/s MV DecT: 300 ms MV A Satya: 0.70 m/s MV E/A Ratio: 1.48 FINDINGS -------- Sinus rhythm. This was a technically good study. The left ventricular size is normal. There is borderline concentric left ventricular hypertrophy. Overall left ventricular systolic function is normal with, an EF between 60 - 65 %. The right ventricle is mildly enlarged. Normal LA size by volume 22+/-6 ml/m2. The right atrium is normal in size. The aortic valve is trileaflet and appears structurally normal. Trace amount of aortic regurgitatio n. There is trace mitral regurgitation. The tricuspid valve appears structurally normal. There is no pulmonic regurgitation present. The aortic root size is normal. Normal inferior vena cava with normal inspiratory collapse consistent with estimated right atrial pre ssure of 5 mmHg. There is no pericardial effusion. CONCLUSIONS -------- 1. Sinus rhythm. 2. This was a technically good study. 3. The left ventricular size is normal. 4. There is borderline concentric left ventricular hypertrophy. 5. Overall left ventricular systolic function is normal with, an EF between 60 - 65 %. 6. The right ventricle is mildly enlarged. 7. Normal LA size by volume 22+/-6 ml/m2. 8. The right atrium is normal in size. 9. The aortic valve is trileaflet and appears structurally normal. 10. Trace amount of aortic regurgitation. 11. There is trace mitral regurgitation. 12. The tricuspid valve appears structurally normal. 13. There is no pulmonic regurgitation present. 14. The aortic root size is normal. 15. Normal inferior vena cava with normal inspiratory collapse consistent with estimated right atrial pressure of 5 mmHg. 16. There is no pericardial effusion. SKEIN WINDING OPERATOR: Zeynep Sin RDCS
[2018-01-27 12:58] VITALS: BP 139/78; PULSE 60
--- NOTE | 2018-01-27 14:13 | P.CRDCN ---
History of Present Illness History of present illness: Mr. Diego is a pleasant 52-year-old -Armenian male past medical history significant for dyslipidemia although he takes no daily medications. He denies history of coronary artery disease, hypertension or diabetes mellitus. We've been asked to see him in consultation for syncope. Patient states while he was working 2 days ago he started feeling nauseated and then he started feeling lightheaded, diaphoretic and confused. Sister at the bedside states he was having shaking in his right arm. He denies loss of bowel or bladder control. He denies having any symptoms of chest pain, shortness of breath or palpitations . There is no actual loss of consciousness or syncope. He has been seen in consultation by neurology. EEG is pending. CT of the brain is negative for an acute intracranial abnormality. EKG reveals sinus mechanism with right bundle branch block pattern. Echocardiogram obtained reveals preserved left ventricular systolic function with ejection fraction 60- 65% with no valvular abnormalities. Telemetry tracings have been unremarkable. Bilateral carotid duplex obtained reveals mild plaque with no stenosis. Laboratory data reviewed, hemoglobin 13.6, platelets 127, d-dimer 0.7, sodium 143, potassium 4.0, creatinine 1.09, troponin negative 3 total CK elevation 924 , 743 and 615 respectively. Urine drug screen positive for marijuana. He takes no daily cardiac medications. At the time of my exam he is seen sitting up eating lunch with family at the bedside. He states his symptoms have completely resolved. He denies any chest pain, shortness of breath, dizziness or palpitations. Review of Systems At the time of my exam: CONSTITUTIONAL: Denies fever. Denies chills. EYES: Denies blurred vision. Denies vision changes. Denies eye pain. EARS, NOSE, MOUTH & THROAT: Denies headache. Denies sore throat. Denies ear pain. CARDIOVASCULAR: Denies chest pain. Denies shortness of breath. Denies orthopnea. Denies PND. Denies palpitations. RESPIRATORY: Denies cough. GASTROINTESTINAL: Denies abdominal pain. Denies diarrhea. Denies constipation. Denies nausea. Denies vomiting. MUSCULOSKELETAL: Denies myalgias. INTEGUMENTARY: Denies pruitis. Denies rash. NEUROLOGIC: Denies numbness. Denies tingling. Denies weakness. PSYCHIATRIC: Denies anxiety. Denies depression. ENDOCRINE: Denies fatigue. Denies weight change. Denies polydipsia. Denies polyurina. GENITOURINARY: Denies burning, hematuria or urgency with micturation. HEMATOLOGIC: Denies history of anemia. Denies bleeding. Past Medical History Past Medical History: Hyperlipidemia Additional Past Medical History / Comment(s): right foot plantar fascitis History of Any Multi-Drug Resistant Organisms: None Reported Past Surgical History: No Surgical Hx Reported Past Anesthesia/Blood Transfusion Reactions: No Reported Reaction Smoking Status: Never smoker - Past Family History Father Family Medical History: Coronary Artery Disease (CAD) Mother Family Medical History: Cancer Sister(s) Additional Family Medical History / Comment(s): chiari formation Brother(s) Family Medical History: Asthma, Hypertension, Renal Disease Son(s) Family Medical History: No Reported History Daughter(s) Family Medical History: Cancer Additional Family Medical History / Comment(s): brain cancer Medications and Allergies Home Medications Medication Instructions Recorded Confirmed Type Cholecalciferol [Vitamin D3] 1,000 unit PO DAILY 07/04/16 01/25/18 History Naproxen Sodium [Aleve] 440 mg PO DAILY PRN 07/04/16 01/25/18 History Ascorbic Acid [Vitamin C] 500 mg PO DAILY 08/24/16 01/25/18 History Allergies Allergy/AdvReac Type Severity Reaction Status Date / Time strawberry Allergy Anaphylaxis Verified 01/25/18 22:22 Physical Exam Vitals: Vital Signs Temp Pulse Pulse Pulse Pulse Resp BP 01/27/18 12:55 55 L 63 60 18 148/89 01/27/18 08:00 18 01/27/18 07:45 97.9 F 69 18 01/27/18 04:00 16 01/27/18 00:00 98.4 F 77 16 01/26/18 20:00 98.0 F 71 16 01/26/18 16:30 98.2 F 71 18 BP BP BP Pulse Ox 01/27/18 12:55 150/91 139/78 99 01/27/18 08:00 01/27/18 07:45 130/70 96 01/27/18 04:00 01/27/18 00:00 143/72 95 01/26/18 20:00 159/64 98 01/26/18 16:30 156/79 96 Intake and Output 01/26/18 01/27/18 01/27/18 22:59 06:59 14:59 Intake Total 360 600 920 Balance 360 600 920 Intake: IV 600 Sodium Chloride 0.9% 1, 600 000 ml @ 100 mls/hr IV . Q10H [facility] Rx#:[id number] Oral 360 720 Other 200 Other: Voiding Method Toilet Toilet Toilet # Voids 1 Blood pressure 130/70 heart rate 69 afebrile maintaining oxygen saturation on room air GENERAL: This is a 52-year-old -Armenian male in no apparent distress at the time of my examination. HEENT: Head is atraumatic, normocephalic. Pupils are equal, round. Sclerae anicteric. Conjunctivae are clear. Mucous membranes of the mouth are moist. Neck is supple. There is no jugular venous distention. No carotid bruit is heard. LUNGS: Clear to auscultation no wheezes, rales or rhonchi. No chest wall tenderness is noted on palpation or with deep breathing. HEART: Regular rate and rhythm without murmurs, rubs or gallops. S1 and S2 heard. ABDOMEN: Soft, nontender. Bowel sounds are heard. No organomegaly noted. EXTREMITIES: No evidence of peripheral edema and no calf tenderness noted. VASCULAR: Radial and dorsalis pedis pulses palpated, no evidence of clubbing. NEUROLOGIC: Patient is awake, alert and oriented x3. Results 01/26/18 06:32 01/26/18 06:32 Current Medications Generic Name Dose Route Start Last Admin Trade Name Freq PRN Reason Stop Dose Admin Enoxaparin Sodium 40 mg 01/26/18 17:30 01/27/18 08:56 Lovenox SQ Not Given DAILY [facility] Sodium Chloride 1,000 mls @ 100 mls/hr 01/25/18 20:30 01/27/18 05:48 Saline 0.9% IV 100 mls/hr .Q10H [facility] Administration Naloxone HCl 0.2 mg 01/25/18 20:22 Narcan IV Q2M PRN Opioid Reversal Ondansetron HCl 4 mg 01/25/18 20:22 01/25/18 22:42 Zofran IVP 4 mg Q8HR PRN Administration Nausea And Vomiting Pantoprazole Sodium 40 mg 01/27/18 07:30 01/27/18 08:56 Protonix PO Not Given AC-BRKFST [facility] Intake and Output 01/26/18 01/27/18 01/27/18 22:59 06:59 14:59 Intake Total 360 600 920 Balance 360 600 920 Intake: IV 600 Sodium Chloride 0.9% 1, 600 000 ml @ 100 mls/hr IV . Q10H [facility] Rx#:[id number] Oral 360 720 Other 200 Other: Voiding Method Toilet Toilet Toilet # Voids 1 01/26/18 06:32 01/26/18 06:32 Assessment and Plan Assessment: ASSESSMENT Vasovagal reaction Marijuana use PLAN An acute coronary event has been ruled out with no EKG evidence of ischemia and negative cardiac enzymes. Symptoms suggestive of vasovagal reaction. We will apply a 2 week event monitor to assess for any arrhythmia. Advised patient on lifestyle modifications in the form of marijuana cessation. Follow-up with Dr. Weston in the office in 3-4 weeks. Thank you kindly for this consultation. Nurse Practitioner note has been reviewed, I agree with a documented findings and plan of care. Patient was seen and examined.
--- NOTE | 2018-01-30 20:24 | DS ---
DISCHARGE SUMMARY DATE OF ADMISSION: 01/25/2018 DATE OF DISCHARGE: 01/27/2018. FINAL DIAGNOSES: 1. Syncope could be vasovagal. 2. Obesity BMI 32.4. 3. Mild thrombocytopenia, cause undetermined. 4. Rhabdomyolysis, acute, mild secondary to fall. 5. Recreational marijuana use. HOSPITAL COURSE: This patient presented with an episode of passing out. Some jerking. Symptoms lasted for quite a few hours. CT scan of the brain was negative. 2D echocardiogram showed EF to be 60-65 percent. Carotid Doppler did not show any critical stenosis. Dr. Bach did call in to say that the EEG was unremarkable. An EEG will be followed up as an outpatient. At this point, the patient could be discharged. The patient is seen by Dr. Amber Weston from cardiology, Dr. Ramses Bach from Neurology. The patient was advised against use of marijuana. At this point exact diagnosis is unclear. The patient will be getting a Holter monitor as an outpatient to rule out any arrhythmia. Nothing was picked up during the hospital stay. Seizures remains in the differential at this point, but the patient had never had an episode before. Care was discussed in detail with the patient, his sister, other family members present on the day of discharge. The patient also advised about the [place] law that she is not allowed to drive as per Neurology for at least 6 months will be determined as per her workup as an outpatient. PHYSICAL EXAMINATION: Temperature 97.9, pulse 69, respiration 18, blood pressure 130/70, pulse ox 96% on room air. Lungs are clear. Cardiovascular: 1st and 2nd sounds normal. LABS: Platelets 127. CPK down to 615. Troponins were negative. DISPOSITION: Home. SPECIAL INSTRUCTIONS: No driving of any motorized vehicle for at least 6 months. Discussed with the patient. FOLLOWUP: Follow up with Dr. Amber Weston in 3 weeks. Follow up with Dr. Ivan in 1 week, follow with Dr. Hiram Bach on February 07, 2018. Discussion and discharge planning more than [address] Ivan. MMJEANNEL / ISABELN: [id number] /
== END 2018-01-27 16:00 | disposition home or self-care (01) ==
LOC: EC 17:44 → 3OBS 20:22
PROVIDERS: ADMIT Hospitalist; ATTEND Hospitalist
DX: R55 Syncope and collapse (principal); R41.82 Altered mental status, unspecified; D69.6 Thrombocytopenia, unspecified; E66.9 Obesity, unspecified; Z68.32 Body mass index [BMI] 32.0-32.9, adult; M72.2 Plantar fascial fibromatosis; E78.5 Hyperlipidemia, unspecified; M62.82 Rhabdomyolysis; W19.XXXA Unspecified fall, initial encounter; Z80.8 Family history of malignant neoplasm of other organs or systems; Z82.49 Family history of ischemic heart disease and other diseases of the circulatory system; Z82.5 Family history of asthma and other chronic lower respiratory diseases; Z91.018 Allergy to other foods; Z71.51 Drug abuse counseling and surveillance of drug abuser; Z79.899 Other long term (current) drug therapy
CPT/HCPCS: 96361 ×2; 96374; 99285; 36415; 95819; 93005; 93306; 93270; 93271; 85379; 80053 ×2; 82550 ×2; 82553 ×2; 84484 ×2; 85025 ×2; 85610; 85730; 81003; 80306; 80320; 71046; 93880; 70450; G0378 ×3; J2405; C9113 ×2

== ENCOUNTER 2018-11-20 08:45 | Emergency (ER) | payer OTHER ==
[2018-11-20 08:49] VITALS: BP 120/80; PULSE 104; RESP 18
[2018-11-20 09:02] VITALS: TEMP 99.9
--- NOTE | 2018-11-20 09:30 | XR ---
EXAMINATION TYPE: XR chest 2V DATE OF EXAM: 11/20/2018 COMPARISON: 01/25/2018 TECHNIQUE: PA and lateral views submitted. HISTORY: Difficulty breathing FINDINGS: The lungs are clear and there is no pneumothorax, pleural effusion, or focal pneumonia. Hypertrophi c change of the spine. Subsegmental changes at the left lung base. IMPRESSION: 1. Left basilar atelectasis favored over infiltrate correlate clinically..
[2018-11-20] MEDS ORDERED: cefTRIAXone 1,000 MG VIAL (IM USE) IM STA (10:20)
--- NOTE | 2018-11-20 10:20 | ED ---
General Adult HPI - General Chief complaint: Shortness of Breath Stated complaint: POSS BRONCHITIS Time Seen by Provider: 11/20/18 08:45 Source: patient, RN notes reviewed Mode of arrival: ambulatory Limitations: no limitations - History of Present Illness Initial comments: This is a 53-year-old male who presents emergency Department complaining of a co ugh for the last couple of days. Patient states been coughing up quite a bit of dark sputum. Patient also states he's been a little bit short of breath but this morning he feels normal and his breathing. Patient states she was wheezing but is no longer wheezing. Patient denies any chest pain or palpitations. Patient's dates he has no abdominal pain. Patient denies any lightheadedness or dizziness. Patient denies any numbness or weakness. - Related Data Home Medications Medication Instructions Recorded Confirmed Promethaz-Cod 6.25-10 mg/5 ml 5 ml PO Q4HR PRN 11/20/18 11/20/18 [Phenergan with Codeine] diphenhydrAMINE [Benadryl] 50 mg PO DAILY PRN 11/20/18 11/20/18 Previous Rx's Medication Instructions Recorded Azithromycin [Zithromax Tri-Amari] 500 mg PO DAILY #3 tab 11/20/18 Allergies Allergy/AdvReac Type Severity Reaction Status Date / Time strawberry Allergy Anaphylaxis Verified 11/20/18 09:07 Review of Systems ROS Statement: Those systems with pertinent positive or pertinent negative responses have been documented in the HPI. ROS Other: All systems not noted in ROS Statement are negative. Past Medical History Past Medical History: Hyperlipidemia Additional Past Medical History / Comment(s): right foot plantar fascitis History of Any Multi-Drug Resistant Organisms: None Reported Past Surgical History: No Surgical Hx Reported Past Anesthesia/Blood Transfusion Reactions: No Reported Reaction Past Psychological History: Depression Smoking Status: Never smoker Past Alcohol Use History: None Reported Past Drug Use History: None Reported - Past Family History Father Family Medical History: Coronary Artery Disease (CAD) Mother Family Medical History: Cancer Sister(s) Additional Family Medical History / Comment(s): chiari formation Brother(s) Family Medical History: Asthma, Hypertension, Renal Disease Son(s) Family Medical History: No Reported History Daughter(s) Family Medical History: Cancer Additional Family Medical History / Comment(s): brain cancer General Exam - General Exam Comments Initial Comments: GENERAL: Patient is well-developed and well-nourished. Patient is nontoxic and well- hydrated and is in mild distress. ENT: Neck is soft and supple. No significant lymphadenopathy is noted. Oropharynx is clear. Moist mucous membranes. Neck has full range of motion without eliciting any pain. EYES: The sclera were anicteric and conjunctiva were pink and moist. Extraocular movements were intact and pupils were equal round and reactive to light. Eyelids were unremarkable. PULMONARY: Unlabored respirations. Good breath sounds bilaterally. No audible rales rhonchi or wheezing was noted. CARDIOVASCULAR: There is a regular rate and rhythm without any murmurs gallops or rubs. ABDOMEN: Soft and nontender with normal bowel sounds. No palpable organomegaly was noted. There is no palpable pulsatile mass. SKIN: Skin is clear with no lesions or rashes and otherwise unremarkable. NEUROLOGIC: Patient is alert and oriented x3. Cranial nerves II through XII are grossly intact. Motor and sensory are also intact. Normal speech, volume and content. Symmetrical smile. MUSCULOSKELETAL: Normal extremities with adequate strength and full range of motion. LYMPHATICS: No significant lymphadenopathy is noted PSYCHIATRIC: Normal psychiatric evaluation. Limitations: no limitations Course Vital Signs 11/20/18 11/20/18 08:47 09:01 Temperature 98.5 F 99.9 F H Pulse Rate 104 H Respiratory 18 Rate Blood Pressure 120/80 O2 Sat by Pulse 96 Oximetry Disposition Clinical Impression: Acute bronchitis Disposition: HOME SELF-CARE Condition: Good Instructions (If sedation given, give patient instructions): Acute Bronchitis (ED) Prescriptions: Azithromycin [Zithromax Tri-Amari] 500 mg PO DAILY #3 tab Is patient prescribed a controlled substance at d/c from ED?: No Referrals: Etienne Ivan DO [Primary Care Provider] - 1-2 days Time of Disposition: 10:20
== END 2018-11-20 10:44 | disposition home or self-care (01) ==
LOC: EC 08:45
DX: J20.9 Acute bronchitis, unspecified (principal); Z82.5 Family history of asthma and other chronic lower respiratory diseases; Z91.018 Allergy to other foods; Z53.29 Procedure and treatment not carried out because of patient's decision for other reasons
CPT/HCPCS: 71046; 99284

== ENCOUNTER 2022-04-23 18:24 | Emergency (ER) | payer OTHER ==
[2022-04-23 18:56] VITALS: TEMP 97
--- NOTE | 2022-04-23 20:03 | XR ---
EXAMINATION TYPE: XR hand complete LT DATE OF EXAM: 04/23/2022 COMPARISON: NONE HISTORY: Pain TECHNIQUE: 3 views FINDINGS: The metacarpals are intact. Carpal bones are intact. I see no fracture nor dislocation. The joint spaces are normal. IMPRESSION: Negative left hand exam.
--- NOTE | 2022-04-23 20:16 | ED ---
Upper Extremity HPI - General Chief Complaint: Extremity Injury, Upper Stated Complaint: lt hand injury Time Seen by Provider: 04/23/22 20:10 Source: patient, RN notes reviewed Mode of arrival: ambulatory Limitations: no limitations - History of Present Illness Initial Comments: Patient is 57 year old male who presents to the ED for left hand pain. Patient states he hyperextended his thumb while moving tables today. Has mild pain over the palmar near his thumb with some swelling. No numbness or tingling. - Related Data Home Medications Medication Instructions Recorded Confirmed Promethaz-Cod 6.25-10 mg/5 ml 5 ml PO Q4HR PRN 11/20/18 11/20/18 [Phenergan with Codeine] diphenhydrAMINE [Benadryl] 50 mg PO DAILY PRN 11/20/18 11/20/18 Previous Rx's Medication Instructions Recorded Azithromycin [Zithromax Tri-Amari] 500 mg PO DAILY #3 tab 11/20/18 Ibuprofen [Motrin] 800 mg PO Q8HR PRN #30 tab 04/23/22 Allergies Allergy/AdvReac Type Severity Reaction Status Date / Time strawberry Allergy Anaphylaxis Verified 11/20/18 09:07 Review of Systems ROS Statement: Those systems with pertinent positive or pertinent negative responses have been documented in the HPI. ROS Other: All systems not noted in ROS Statement are negative. Past Medical History Past Medical History: Hyperlipidemia Additional Past Medical History / Comment(s): right foot plantar fascitis History of Any Multi-Drug Resistant Organisms: None Reported Past Surgical History: No Surgical Hx Reported Past Anesthesia/Blood Transfusion Reactions: No Reported Reaction Past Psychological History: Depression Past Alcohol Use History: None Reported Past Drug Use History: None Reported - Past Family History Father Family Medical History: Coronary Artery Disease (CAD) Mother Family Medical History: Cancer Sister(s) Additional Family Medical History / Comment(s): chiari formation Brother(s) Family Medical History: Asthma, Hypertension, Renal Disease Son(s) Family Medical History: No Reported History Daughter(s) Family Medical History: Cancer Additional Family Medical History / Comment(s): brain cancer General Exam Limitations: no limitations General appearance: alert, in no apparent distress Respiratory exam: Present: normal lung sounds bilaterally. Absent: respiratory distress, wheezes, rales, rhonchi, stridor Cardiovascular Exam: Present: regular rate, normal rhythm, normal heart sounds. Absent: systolic murmur, diastolic murmur, rubs, gallop, clicks Extremities exam: Present: other (tenderness and mild swelling over palmar aspect of left first metacarpal. no anatomical snuffbox tenderness. Minimal pain with thumb flexion and extension. Neurovascularly intact) Neurological exam: Present: alert, oriented X3, CN II-XII intact Psychiatric exam: Present: normal affect, normal mood Skin exam: Present: warm, dry, intact, normal color. Absent: rash Course Vital Signs 04/23/22 04/23/22 18:53 20:29 Temperature 97 F L Pulse Rate 80 109 H Respiratory 16 20 Rate Blood Pressure 175/85 135/77 O2 Sat by Pulse 99 98 Oximetry Medical Decision Making - Medical Decision Making Was pt. sent in by a medical professional or institution (MERY Vasquez, DIRECTOR OF RECRUITING, urgent care, hospital, or longterm...) When possible be specific @ -[No] Did you speak to anyone other than the patient for history (EMS, parent, family, police, friend...)? What history was obtained from this source @ -[No] Did you review nursing and triage notes (agree or disagree)? Why? @ -[I reviewed and agree with nursing and triage notes] Were old charts reviewed (outside hosp., previous admission, EMS record, old EKG, old radiological studies, urgent care reports/EKG's, longterm records)? Report findings @ -[No old charts were reviewed] Differential Diagnosis (chest pain, altered mental status, abdominal pain women, abdominal pain men, vaginal bleeding, weakness, fever, dyspnea, syncope, headache, dizziness, GI bleed, back pain, seizure, CVA, palpatations, mental health)? @ -soft tissue injury, thumb sprain, fracture EKG interpreted by me (3pts min.). @ -NA X-rays interpreted by me (1pt min.). @ -Yes, left hand xray shows no evidence of fracture or other acute process CT interpreted by me (1pt min.). @ -[None done] U/S interpreted by me (1pt. min.). @ -[None done] What testing was considered but not performed or refused? (CT, X-rays, U/S, labs)? Why? @ -[None] What meds were considered but not given or refused? Why? @ -Considered pain medications however patient would rather order picker prescription at pharmacy instead of wait for a room in the ED Did you discuss the management of the patient with other professionals (professionals i.e. , PA, DIRECTOR OF RECRUITING, lab, RT, psych nurse, outreach and education social worker, agricultural pilot, teacher, biological technical officer, rifle case repairer)? Give summary @ -[No] Was smoking cessation discussed for >3mins.? @ -[No] Was critical care preformed (if so, how long)? @ -[No] Were there social determinants of health that impacted care today? How? (Homelessness, low income, unemployed, alcoholism, drug addiction, transportation, low edu. Level, literacy, decrease access to med. care, fdc, rehab)? @ -[No] Was there de-escalation of care discussed even if they declined (Discuss DNR or withdrawal of care, Hospice)? DNR status @ -[No] What co-morbidities impacted this encounter? (DM, HTN, Smoking, COPD, CAD, Cancer, CVA, ARF, Chemo, Hep., AIDS, mental health diagnosis, sleep apnea, morbid obesity)? @ -[None] Was patient admitted / discharged? Hospital course, mention meds given and route, prescriptions, significant lab abnormalities, going to OR and other pertinent info. @ -This a 57 year old male presenting with left thumb pain. No acute fracture, no anatomical snuffbox tenderness. Minimal pain with ROM. Injury wrapped with adolfo bandage. Patient will be discharged with RICE instructions. Ashlie sent to pharmacy Undiagnosed new problem with uncertain prognosis? @ -[No] Drug Therapy requiring intensive monitoring for toxicity (Heparin, Nitro, Insulin, Cardizem)? @ -[No] Were any procedures done? @ -[No] Diagnosis/symptom? @ left thumb pain Acute, or Chronic, or Acute on Chronic? @ -acute Uncomplicated (without systemic symptoms) or Complicated (systemic symptoms)? @ -Uncomplicated Side effects of treatment? @ -[No] Exacerbation, Progression, or Severe Exacerbation? @ -[No] Poses a threat to life or bodily function? How? (Chest pain, USA, DC, pneumonia, PE, COPD, DKA, ARF, appy, cholecystitis, CVA, Diverticulitis, Homicidal, Suicidal, threat to staff... and all critical care pts) @ -[No] Dr. Waldrop is my attending. Disposition Clinical Impression: Pain of left thumb Disposition: HOME SELF-CARE Condition: Poor Instructions (If sedation given, give patient instructions): Finger Sprain (ED), P.R.I.C.E. Treatment (ED) Additional Instructions: Rest, ice, and elevate injury. Keep adolfo bandage on if desire which should help pain and swelling. Take Motrin as directed. Follow up with primary care in 1-2 days. Return to the ED if you experience new, concerning, or worsening symptoms. Prescriptions: Ibuprofen [Motrin] 800 mg PO Q8HR PRN #30 tab PRN Reason: Pain Is patient prescribed a controlled substance at d/c from ED?: No Referrals: None,Stated [Primary Care Provider] - 1-2 days
[2022-04-23 20:29] VITALS: BP 135/77; PULSE 109; RESP 20
== END 2022-04-23 20:38 | disposition home or self-care (01) ==
LOC: EC 18:24
DX: M79.645 Pain in left finger(s) (principal); F32.A Depression, unspecified; Z91.018 Allergy to other foods
CPT/HCPCS: 99283

== ENCOUNTER 2024-10-23 21:15 | Emergency (ER) | payer OTHER ==
[2024-10-23 21:27] VITALS: RESP 18
--- NOTE | 2024-10-23 21:44 | ED ---
General Adult HPI - General Chief complaint: Upper Respiratory Infection Stated complaint: Chest Congestion Time Seen by Provider: 10/23/24 21:31 Source: patient, RN notes reviewed Mode of arrival: ambulatory Limitations: no limitations - History of Present Illness Initial comments: This is a 59-year-old male with history of hyperlipidemia presenting for sick symptoms x 2 days. Patient endorses initial sore throat several days ago that is since resolved with ongoing productive cough with green sputum and chest congestion for the past 2 days. Patient endorses history of bronchitis. Endorses use of Advil and NyQuil with minimal relief. Denies fever, chills, fatigue, body chest pain, dyspnea, abdominal pain, N/V/D. Onset/Timin -: days(s) - Related Data Home Medications Medication Instructions Recorded Confirmed Albuterol Inhaler [Ventolin Hfa 2 puff INHALATION RT-Q6H PRN 10/29/24 10/29/24 Inhaler] guaiFENesin-DM 600/30MG [Mucinex 1 tab PO Q12H PRN 10/29/24 10/29/24 Dm] Previous Rx's Medication Instructions Recorded Azithromycin [Zithromax Z Pack] 0 tab PO DIRECTED #6 tab 10/29/24 Allergies Allergy/AdvReac Type Severity Reaction Status Date / Time prednisone Allergy chest Verified 10/29/24 17:39 pain/wheezing/frequent urintation Review of Systems ROS Statement: Those systems with pertinent positive or pertinent negative responses have been documented in the HPI. ROS Other: All systems not noted in ROS Statement are negative. Past Medical History Past Medical History: Hyperlipidemia Additional Past Medical History / Comment(s): right foot plantar fascitis History of Any Multi-Drug Resistant Organisms: None Reported Past Surgical History: No Surgical Hx Reported Past Anesthesia/Blood Transfusion Reactions: No Reported Reaction Past Psychological History: No Psychological Hx Reported Smoking Status: Never smoker Past Alcohol Use History: None Reported Past Drug Use History: None Reported - Past Family History Father Family Medical History: Coronary Artery Disease (CAD) Mother Family Medical History: Cancer Sister(s) Additional Family Medical History / Comment(s): chiari formation Brother(s) Family Medical History: Asthma, Hypertension, Renal Disease Son(s) Family Medical History: No Reported History Daughter(s) Family Medical History: Cancer Additional Family Medical History / Comment(s): brain cancer General Exam Limitations: no limitations General appearance: alert, in no apparent distress Head exam: Present: atraumatic, normocephalic, normal inspection Eye exam: Present: normal appearance, PERRL, EOMI. Absent: scleral icterus, conjunctival injection, periorbital swelling ENT exam: Present: normal exam, normal oropharynx, mucous membranes dry, TM's normal bilaterally Neck exam: Present: normal inspection. Absent: tenderness, meningismus, lymphadenopathy Respiratory exam: Present: decreased breath sounds, prolonged expiratory. Absent: respiratory distress, wheezes, rales, rhonchi, stridor, accessory muscle use Cardiovascular Exam: Present: regular rate, normal rhythm, normal heart sounds. Absent: systolic murmur, diastolic murmur, rubs, gallop, clicks GI/Abdominal exam: Present: soft, normal bowel sounds. Absent: distended, tenderness, guarding, rebound, rigid Extremities exam: Present: normal inspection, full ROM, normal capillary refill. Absent: tenderness, pedal edema, joint swelling, calf tenderness Back exam: Present: normal inspection Neurological exam: Present: alert, oriented X3, CN II-XII intact Psychiatric exam: Present: normal affect, normal mood Skin exam: Present: warm, dry, intact, normal color. Absent: rash Course Vital Signs 10/23/24 10/23/24 10/23/24 21:24 22:58 23:08 Temperature 99.2 F Pulse Rate 102 H 96 95 Respiratory 18 18 18 Rate Blood Pressure 123/78 O2 Sat by Pulse 97 Oximetry 10/23/24 23:50 Temperature 98.7 F Pulse Rate 91 Respiratory 18 Rate Blood Pressure 121/79 O2 Sat by Pulse 95 Oximetry Medical Decision Making - Medical Decision Making Was pt. sent in by a medical professional or institution (, PA, DIRECTOR TRADING, urgent care, hospital, or [facility]...) When possible be specific @ -No Did you speak to anyone other than the patient for history (EMS, parent, family, police, friend...)? What history was obtained from this source @ -No Did you review nursing and triage notes (agree or disagree)? Why? @ -I reviewed and agree with nursing and triage notes Were old charts reviewed (outside hosp., previous admission, EMS record, old EKG, old radiological studies, urgent care reports/EKG's, [facility] records)? Report findings @ -No old charts were reviewed Differential Diagnosis (chest pain, altered mental status, abdominal pain women, abdominal pain men, vaginal bleeding, weakness, fever, dyspnea, syncope, headache, dizziness, GI bleed, back pain, seizure, CVA, palpatations, mental health, musculoskeletal)? @ -Differential Fever: Pneumonia, viral URI, endocarditis, myocarditis, pericarditis, otitis, sinusitis, peritonsillar Abscess, retropharyngeal Abscess, epiglottitis, peritonitis, appendicitis, Mandi cystitis, diverticulitis, hepatitis, colitis, UTI, PID, TOA, pyelonephritis, prostatitis, epididymitis, meningitis, encephalitis, pulmonary embolism, CVA, thyroid storm, pancreatitis, adrenal crisis, cavernous sinus thrombosis, this is not meant to be an all-inclusive l ist. EKG interpreted by me (3pts min.). @ -Not done X-rays interpreted by me (1pt min.). @ -CXR shows no acute cardiopulmonary process CT interpreted by me (1pt min.). @ -None done U/S interpreted by me (1pt. min.). @ -None done What testing was considered but not performed or refused? (CT, X-rays, U/S, labs)? Why? @ -None What meds were considered but not given or refused? Why? @ -Patient declined steroids for diminished lung sounds Did you discuss the management of the patient with other professionals (professionals i.e. , PA, DIRECTOR TRADING, lab, RT, psych nurse, drug abuse social worker, licensed dispensing optician, teacher, first aid officer, case planner)? Give summary @ -No Was smoking cessation discussed for >3mins.? @ -No Was critical care preformed (if so, how long)? @ -No Were there social determinants of health that impacted care today? How? (Homelessness, low income, unemployed, alcoholism, drug addiction, transportation, low edu. Level, literacy, decrease access to med. care, assisted, rehab)? @ -No Was there de-escalation of care discussed even if they declined (Discuss DNR or withdrawal of care, Hospice)? DNR status @ -No What co-morbidities impacted this encounter? (DM, HTN, Smoking, COPD, CAD, Cancer, CVA, ARF, Chemo, Hep., AIDS, mental health diagnosis, sleep apnea, morbid obesity)? @ -None Was patient admitted / discharged? Hospital course, mention meds given and route, prescriptions, significant lab abnormalities, going to OR and other pertinent info. @ -DuoNeb offered to the patient declined medications otherwise. Cepheid test negative. CXR shows no acute cardiopulmonary process. Advised [id number] Mucinex DM every 12 hours as needed for chest congestion and cough. Honey, warm fluids and humidifier for cough as well. Alternate Tylenol/Motrin every 4 hours for fever/pain. Work note provided upon patient request. Return to ER if experiencing worsening cough with fever, fatigue and/or hemoptysis. Discussed patient with Dr. Carter. Undiagnosed new problem with uncertain prognosis? @ -No Drug Therapy requiring intensive monitoring for toxicity (Heparin, Nitro, Insulin, Cardizem)? @ -No Were any procedures done? @ -No Diagnosis/symptom? @ -Bronchitis Acute, or Chronic, or Acute on Chronic? @ -Acute Uncomplicated (without systemic symptoms) or Complicated (systemic symptoms)? @ -Uncomplicated Side effects of treatment? @ -No Exacerbation, Progression, or Severe Exacerbation? @ -No Poses a threat to life or bodily function? How? (Chest pain, USA, PA, pneumonia, PE, COPD, DKA, ARF, appy, cholecystitis, CVA, Diverticulitis, Homicidal, Suicidal, threat to staff... and all critical care pts) @ -No - Lab Data Lab Results 10/23/24 Range/Units 22:03 Influenza Type A (PCR) Not Detected (Not Detectd) Influenza Type B (PCR) Not Detected (Not Detectd) RSV (PCR) Not Detected (Not Detectd) SARS-CoV-2 (PCR) Not Detected (Not Detectd) Disposition Clinical Impression: Bronchitis Disposition: HOME SELF-CARE Condition: Good Instructions (If sedation given, give patient instructions): Acute Bronchitis (ED) Additional Instructions: Honey, warm fluids, humidifier for productive cough. May take [id number] Mucinex every 12 hours as needed for chest congestion. Return to ER if experiencing fever, fatigue, blood in sputum, difficulty breathing, pain with inspiration/coughing. Is patient prescribed a controlled substance at d/c from ED?: No Referrals: Steffen Skelton MD [Primary Care Provider] - 1-2 days Time of Disposition: 23:07
[2024-10-23] MEDS: IPRATROPIUM-ALBUTEROL 3 ML NEB INHALATION STA (22:58)
[2024-10-23 23:04] LABS: RSV Not Detected (Not Detectd)
[2024-10-23 23:52] VITALS: BP 121/79; PULSE 91; TEMP 98.7
--- NOTE | 2024-10-23 23:56 | XR ---
EXAM: XR Chest, 2 Views CLINICAL HISTORY: ITS.REASON XR Reason: Productive cough TECHNIQUE: Frontal and lateral views of the chest. COMPARISON: No relevant prior studies available. FINDINGS: Lungs: No consolidation or mass. Pleural space: No effusion. Heart: No cardiomegaly. Bones/joints: No acute findings. IMPRESSION: No acute cardiopulmonary process.
== END 2024-10-23 23:52 | disposition home or self-care (01) ==
LOC: EC 21:15
DX: J40 Bronchitis, not specified as acute or chronic (principal); Z88.8 Allergy status to other drugs, medicaments and biological substances
CPT/HCPCS: 71046; 87636; 94640; 99283

== ENCOUNTER 2024-10-29 15:09 | Emergency (ER) | payer OTHER ==
--- NOTE | 2024-10-29 15:58 | ED ---
SOB HPI - General Source: patient, RN notes reviewed Mode of arrival: ambulatory Limitations: no limitations <Lashell Duarte - Last Filed: 10/29/24 15:58> <Trisha Davis - Last Filed: 10/29/24 23:39> - General Chief Complaint: Shortness of Breath Stated Complaint: Chest tightness,SOB Time Seen by Provider: 10/29/24 15:58 - History of Present Illness Initial Comments: Quick note: 59-year-old male presented the ER for evaluation of shortness of breath. Patient states over a week ago he was diagnosed with bronchitis and started on prednisone. He states he has not had any improvement since being on this. Patient reports a tight chest sensation at rest and while coughing. Denies fevers. Denies known cardiac history. (Lashell Duarte) 59-year-old male presenting to the emergency department with complaints of shortness of breath and chest tightness. He states that he was diagnosed with bronchitis on 23 October and started on steroids and given an albuterol inhaler however he feels like his symptoms are worsening. He feels like his lungs are "tight "and he cannot take in a deep breath or exhale. He denies history of COPD, asthma, smoking history. States that his productive cough has been improving over the past few days. Denies bilateral lower extremity edema or calf swelling, calf redness, recent travel or surgeries, history of DVT or PE. Denies orthopnea, heart palpitations, dizziness or lightheadedness. Denies fevers or chills. (Trisha Davis) - Related Data Home Medications Medication Instructions Recorded Confirmed Albuterol Inhaler [Ventolin Hfa 2 puff INHALATION RT-Q6H PRN 10/29/24 10/29/24 Inhaler] guaiFENesin-DM 600/30MG [Mucinex 1 tab PO Q12H PRN 10/29/24 10/29/24 Dm] Previous Rx's Medication Instructions Recorded Azithromycin [Zithromax Z Pack] 0 tab PO DIRECTED #6 tab 10/29/24 Allergies Allergy/AdvReac Type Severity Reaction Status Date / Time prednisone Allergy chest Verified 10/29/24 17:39 pain/wheezing/frequent urintation Review of Systems ROS Other: All systems not noted in ROS Statement are negative. <Lashell Duarte - Last Filed: 10/29/24 15:58> ROS Other: All systems not noted in ROS Statement are negative. <Trisha Davis - Last Filed: 10/29/24 23:39> ROS Statement: Those systems with pertinent positive or pertinent negative responses have been documented in the HPI. Past Medical History Past Medical History: Hyperlipidemia Additional Past Medical History / Comment(s): right foot plantar fascitis History of Any Multi-Drug Resistant Organisms: None Reported Past Surgical History: No Surgical Hx Reported Past Anesthesia/Blood Transfusion Reactions: No Reported Reaction Past Psychological History: No Psychological Hx Reported Smoking Status: Never smoker Past Alcohol Use History: None Reported Past Drug Use History: None Reported - Past Family History Father Family Medical History: Coronary Artery Disease (CAD) Mother Family Medical History: Cancer Sister(s) Additional Family Medical History / Comment(s): chiari formation Brother(s) Family Medical History: Asthma, Hypertension, Renal Disease Son(s) Family Medical History: No Reported History Daughter(s) Family Medical History: Cancer Additional Family Medical History / Comment(s): brain cancer <Lashell Duarte - Last Filed: 10/29/24 15:58> General Exam Limitations: no limitations <Lashell Duarte - Last Filed: 10/29/24 15:58> ENT exam: Present: normal exam, mucous membranes moist Neck exam: Present: normal inspection. Absent: tenderness, meningismus, lymphadenopathy Respiratory exam: Present: normal lung sounds bilaterally. Absent: respiratory distress, wheezes, rales, rhonchi, stridor Cardiovascular Exam: Present: regular rate, normal rhythm, normal heart sounds. Absent: systolic murmur, diastolic murmur, rubs, gallop, clicks GI/Abdominal exam: Present: soft, normal bowel sounds. Absent: distended, tenderness, guarding, rebound, rigid Extremities exam: Present: normal inspection, full ROM, normal capillary refill. Absent: tenderness, pedal edema, joint swelling, calf tenderness Skin exam: Present: warm, dry, intact, normal color. Absent: rash <Trisha Davis - Last Filed: 10/29/24 23:39> - General Exam Comments Initial Comments: Visual Physical Exam Vital signs reviewed General: Well-appearing, nontoxic, no acute distress. Head: Normocephalic, atraumatic Eyes: PERRLA, EOMI ENT: Airway patent Chest: Nonlabored breathing Skin: No visual rash, normal skin tone Neuro: Alert and oriented 3 Musculoskeletal: No gross abnormalities (Lashell Duarte) Course Vital Signs 10/29/24 10/29/24 10/29/24 15:13 17:30 18:27 Temperature 98.5 F 98.0 F Pulse Rate 85 64 70 Respiratory 16 18 Rate Blood Pressure 135/91 137/66 O2 Sat by Pulse 99 96 Oximetry Medical Decision Making <Lashell Duarte - Last Filed: 10/29/24 15:58> - Lab Data Result diagrams: 10/29/24 17:00 10/29/24 17:00 <Trisha Davis - Last Filed: 10/29/24 23:39> - Medical Decision Making I performed the quick note portion of this chart. Electronically signed by Lashell Duarte PA-C (Lashell Duarte) Was pt. sent in by a medical professional or institution (MERY Vasquez, CUSTOMER COMPLAINT SERVICE SUPERVISOR, urgent care, hospital, or senior care...) When possible be specific @ -No Did you speak to anyone other than the patient for history (EMS, parent, family, police, friend...)? What history was obtained from this source @ -No Did you review nursing and triage notes (agree or disagree)? Why? @ -I reviewed and agree with nursing and triage notes Were old charts reviewed (outside hosp., previous admission, EMS record, old EKG, old radiological studies, urgent care reports/EKG's, senior care records)? Report findings @ -No old charts were reviewed Differential Diagnosis (chest pain, altered mental status, abdominal pain women, abdominal pain men, vaginal bleeding, weakness, fever, dyspnea, syncope, headache, dizziness, GI bleed, back pain, seizure, CVA, palpatations, mental health, musculoskeletal)? @ -Differential Dyspnea: Coronary syndrome, arrhythmia, tamponade, asthma, COPD, pulmonary embolism, pneumonia, pneumothorax, pulmonary effusion, anaphylaxis, diabetic ketoacidosis, flailed chest, pulmonary contusion, diaphragmatic rupture, anemia, neuromuscular, this is not meant to be an all-inclusive list. EKG interpreted by me (3pts min.). @ -Completed at 1526 sinus rhythm with a noted sinus arrhythmia and right bundle branch block, ventricular rate of 68, MN interval 172, QRS 143, QT 365, QTc 382. X-rays interpreted by me (1pt min.). @ -Chest x-ray reveals no acute cardiopulmonary process CT interpreted by me (1pt min.). @ -None done U/S interpreted by me (1pt. min.). @ -None done What testing was considered but not performed or refused? (CT, X-rays, U/S, labs)? Why? @ -None What meds were considered but not given or refused? Why? @ -None Did you discuss the management of the patient with other professionals (professionals i.e. , PA, CUSTOMER COMPLAINT SERVICE SUPERVISOR, lab, RT, psych nurse, health and social care teacher, target network analyst, teacher, correction officer, rehabilitation caseworker)? Give summary @ -No Was smoking cessation discussed for >3mins.? @ -No Was critical care preformed (if so, how long)? @ -No Were there social determinants of health that impacted care today? How? (Homele ssness, low income, unemployed, alcoholism, drug addiction, transportation, low edu. Level, literacy, decrease access to med. care, longterm, rehab)? @ -No Was there de-escalation of care discussed even if they declined (Discuss DNR or withdrawal of care, Hospice)? DNR status @ -No What co-morbidities impacted this encounter? (DM, HTN, Smoking, COPD, CAD, Cancer, CVA, ARF, Chemo, Hep., AIDS, mental health diagnosis, sleep apnea, morbid obesity)? @ -None Was patient admitted / discharged? Hospital course, mention meds given and route, prescriptions, significant lab abnormalities, going to OR and other pertinent info. @ -Discharge. 59-year-old male presenting to the ER with complaints of chest tightness and cough. Overall patient is well-appearing and initial vitals are stable. Patient is provided with breathing treatment. Laboratory testing reveals leukocytosis 13.9 with left shift neutrophils of 7.92 likely secondary to steroid use and infection. CMP including troponin is unremarkable. Chest x- ray reveals no acute cardiopulmonary process. With concern for patient's persi stent cough, chest tightness productive cough and intermittent fevers and chills while at home over the past 10+ days he will be treated for a tracheobronchitis with antibiotics including azithromycin. Recommend he continue to use albuterol inhaler as needed follow-up with primary care provider for further evaluation. Case discussed with my attending Dr. Carter. Undiagnosed new problem with uncertain prognosis? @ -No Drug Therapy requiring intensive monitoring for toxicity (Heparin, Nitro, Insulin, Cardizem)? @ -No Were any procedures done? @ -No Diagnosis/symptom? @ -tracheobronchitis Acute, or Chronic, or Acute on Chronic? @ -Acute Uncomplicated (without systemic symptoms) or Complicated (systemic symptoms)? @ -Uncomplicated Side effects of treatment? @ -No Exacerbation, Progression, or Severe Exacerbation? @ -No Poses a threat to life or bodily function? How? (Chest pain, USA, MD, pneumonia, PE, COPD, DKA, ARF, appy, cholecystitis, CVA, Diverticulitis, Homicidal, Danae cidal, threat to staff... and all critical care pts) @ -No (Trisha Davis) - Lab Data Lab Results 10/29/24 10/29/24 10/29/24 Range/Units 17:00 17:00 17:00 WBC 13.90 H (4.50-10.00) 10*3/uL RBC 4.92 (4.40-5.60) 10*6/uL Hgb 14.2 (13.0-17.0) g/dL Hct 41.7 (39.6-50.0) % MCV 84.8 (80.0-97.0) fL MCH 28.9 (27.0-32.0) pg MCHC 34.1 (32.0-37.0) g/dL Plt Count 157 (140-440) 10*3/uL MPV 10.8 (9.5-12.2) fL Immature Gran % (Auto) 1.2 % Neutrophils % 56.9 % Lymphocytes % 35.1 % Monocytes % 5.7 % Eosinophils % 0.6 % Basophils % 0.5 % Immature Gran # 0.16 H (0.00-0.04) 10*3/uL Neutrophils # 7.92 H (1.80-7.70) 10*3/uL Lymphocytes # 4.88 (0.90-5.00) 10*3/uL Monocytes # 0.79 (0.20-1.00) 10*3/uL Eosinophils # 0.08 (0.04-0.35) 10*3/uL Basophils # 0.07 (0.00-0.10) 10*3/uL PT (10.0-12.5) sec INR (<1.2) APTT (22.0-30.0) sec Sodium 139 (137-145) mmol/L Potassium 4.1 (3.5-5.1) mmol/L Chloride 103 (98-107) mmol/L Carbon Dioxide 31 H (22-30) mmol/L Anion Gap 5 mmol/L BUN 20 (9-20) mg/dL Creatinine 1.19 (0.66-1.25) mg/dL Est GFR (CKD-EPI)AfAm 78 (>60 ml/min/1.73 sqM) Est GFR (CKD-EPI)NonAf 68 (>60 ml/min/1.73 sqM) Glucose 82 (74-99) mg/dL Plasma Lactic Acid Jose (0.7-2.0) mmol/L Calcium 9.1 (8.4-10.2) mg/dL Magnesium (1.6-2.3) mg/dL Total Bilirubin 0.5 (0.2-1.3) mg/dL AST 34 (17-59) U/L ALT 42 (4-49) U/L Alkaline Phosphatase 58 (38-126) U/L Troponin I <0.012 (0.000-0.034) ng/mL Total Protein 6.9 (6.3-8.2) g/dL Albumin 4.1 (3.5-5.0) g/dL 10/29/24 10/29/24 10/29/24 Range/Units 17:00 18:02 18:02 WBC (4.50-10.00) 10*3/uL RBC (4.40-5.60) 10*6/uL Hgb (13.0-17.0) g/dL Hct (39.6-50.0) % MCV (80.0-97.0) fL MCH (27.0-32.0) pg MCHC (32.0-37.0) g/dL Plt Count (140-440) 10*3/uL MPV (9.5-12.2) fL Immature Gran % (Auto) % Neutrophils % % Lymphocytes % % Monocytes % % Eosinophils % % Basophils % % Immature Gran # (0.00-0.04) 10*3/uL Neutrophils # (1.80-7.70) 10*3/uL Lymphocytes # (0.90-5.00) 10*3/uL Monocytes # (0.20-1.00) 10*3/uL Eosinophils # (0.04-0.35) 10*3/uL Basophils # (0.00-0.10) 10*3/uL PT 11.1 (10.0-12.5) sec INR 1.0 (<1.2) APTT 22.7 (22.0-30.0) sec Sodium (137-145) mmol/L Potassium (3.5-5.1) mmol/L Chloride (98-107) mmol/L Carbon Dioxide (22-30) mmol/L Anion Gap mmol/L BUN (9-20) mg/dL Creatinine (0.66-1.25) mg/dL Est GFR (CKD-EPI)AfAm (>60 ml/min/1.73 sqM) Est GFR (CKD-EPI)NonAf (>60 ml/min/1.73 sqM) Glucose (74-99) mg/dL Plasma Lactic Acid Jose 1.2 (0.7-2.0) mmol/L Calcium (8.4-10.2) mg/dL Magnesium 1.9 (1.6-2.3) mg/dL Total Bilirubin (0.2-1.3) mg/dL AST (17-59) U/L ALT (4-49) U/L Alkaline Phosphatase (38-126) U/L Troponin I (0.000-0.034) ng/mL Total Protein (6.3-8.2) g/dL Albumin (3.5-5.0) g/dL Disposition <Lashell Duarte - Last Filed: 10/29/24 15:58> Is patient prescribed a controlled substance at d/c from ED?: No Time of Disposition: 18:24 <Trisha Davis - Last Filed: 10/29/24 23:39> Clinical Impression: Tracheobronchitis Disposition: HOME SELF-CARE Condition: Good Additional Instructions: Please return to the Emergency Department if symptoms worsen or any other concerns. Prescriptions: Azithromycin [Zithromax Z Pack] 0 tab PO DIRECTED #6 tab Referrals: Steffen Skelton MD [Primary Care Provider] - 1-2 days
--- NOTE | 2024-10-29 16:35 | XR ---
EXAMINATION TYPE: XR chest 2V DATE OF EXAM: 10/29/2024 4:29 PM COMPARISON: Chest radiographs from CLINICAL INDICATION: Male, 59 years old with history of difficulty breathing; [facility] TECHNIQUE: XR chest 2V Frontal and lateral views of the chest. FINDINGS: Lungs/Pleura: There is no evidence of pleural effusion, focal consolidation, or pneumothorax. Pulmonary vascularity: Unremarkable. Heart/mediastinum: Cardiomediastinal silhouette is unremarkable. Musculoskeletal: No acute osseous pathology. Other findings: None IMPRESSION: No acute cardiopulmonary disease/process. [facility], , 10/29/2024 4:33 PM
[2024-10-29 17:08] LABS: Basophils # (A) 0.07 10*3/uL (0.00-0.10); Basophils % (A) 0.5 %; Eosinophils # (A) 0.08 10*3/uL (0.04-0.35); Eosinophils % (A) 0.6 %; HCT 41.7 % (39.6-50.0); HGB 14.2 g/dL (13.0-17.0); Lymphocytes # (A) 4.88 10*3/uL (0.90-5.00); Lymphocytes % (A) 35.1 %; MCH 28.9 pg (27.0-32.0); MCHC 34.1 g/dL (32.0-37.0); MCV 84.8 fL (80.0-97.0); Monocytes # (A) 0.79 10*3/uL (0.20-1.00); Monocytes % (A) 5.7 %; Neutrophils # (A) 7.92 10*3/uL (1.80-7.70); Neutrophils % (A) 56.9 %; Platelet Count 157 10*3/uL (140-440); RBC 4.92 10*6/uL (4.40-5.60); RDW 12.5 % (11.5-14.5); WBC 13.90 10*3/uL (4.50-10.00)
[2024-10-29 17:20] LABS: ALT 42 U/L (4-49); AST 34 U/L (17-59); African American GFR (CKD) 78 (>60 ml/min/1.73 sqM); Albumin 4.1 g/dL (3.5-5.0); Alkaline Phosphatase 58 U/L (38-126); Anion Gap 5 mmol/L; Blood Urea Nitrogen 20 mg/dL (9-20); Calcium 9.1 mg/dL (8.4-10.2); Carbon Dioxide 31 mmol/L (22-30); Chloride 103 mmol/L (98-107); Glucose 82 mg/dL (74-99); Non-African American GFR(CKD) 68 (>60 ml/min/1.73 sqM); Potassium 4.1 mmol/L (3.5-5.1); Sodium 139 mmol/L (137-145); Total Protein 6.9 g/dL (6.3-8.2)
[2024-10-29] MEDS: IPRATROPIUM-ALBUTEROL 3 ML NEB INHALATION STA (17:30)
[2024-10-29 18:29] VITALS: BP 137/66; PULSE 70; RESP 18; TEMP 98
[2024-10-29 18:33] LABS: INR 1.0 (<1.2); Partial Thromboplastin Time 22.7 sec (22.0-30.0); Prothrombin Time 11.1 sec (10.0-12.5)
== END 2024-10-29 18:55 | disposition home or self-care (01) ==
LOC: EC 15:09 → SUPCPDRO 15:09 → EC 18:55
DX: J40 Bronchitis, not specified as acute or chronic (principal); Z88.8 Allergy status to other drugs, medicaments and biological substances
CPT/HCPCS: 36415; 71046; 80053; 83605; 83735; 84484; 85025; 85610; 85730; 93005; 94640; 99285